=== PATIENT | male | born 1985 | race Caucasian/White ===

== ENCOUNTER 2023-07-16 09:01 | Emergency (ER) | payer MEDICAID ==
[~2023-07-16] VITALS: Ht 172.7 cm; Wt 90.0 kg
[2023-07-16 10:00] LABS: BASOPHILS % (AUTO) 0.4 % (0-1); EOSINOPHILS # (AUTO) 0.2 X10'3 (0-0.9); EOSINOPHILS % (AUTO) 2.8 % (0-6); HEMATOCRIT 47.4 % (42.0-52.0); LYMPHOCYTES # (AUTO) 2.3 X10'3 (1.1-4.8); LYMPHOCYTES % (AUTO) 34.9 % (21-51); MEAN CORPUSCULAR HEMOGLOBIN 31.3 PG (27.0-31.0); MEAN CORPUSCULAR HGB CONC 33.8 g/dL (33.0-36.5); MEAN CORPUSCULAR VOLUME 92.6 FL (78-98); MEAN PLATELET VOLUME 7.8 FL (7.4-10.4); MONOCYTES # (AUTO) 0.5 X10'3 (0-0.9); MONOCYTES % (AUTO) 7.9 % (2-12); NEUTROPHILS # (AUTO) 3.6 X10'3 (1.8-7.7); PLATELET COUNT 403 X10'3 (140-440); RED BLOOD COUNT 5.12 X10'6 (4.70-6.10); RED CELL DISTRIBUTION WIDTH 13.5 % (11.5-14.5); WHITE BLOOD COUNT 6.6 X10'3 (4.5-11.0)
[2023-07-16 10:23] LABS: ALANINE AMINOTRANSFERASE 37 U/L (12-78); ALBUMIN 4.1 G/DL (3.4-5.0); ALBUMIN/GLOBULIN RATIO 1.3 (1.1-1.5); ALKALINE PHOSPHATASE 112 IU/L (46-116); ANION GAP 7 (8-16); ASPARTATE AMINO TRANSFERASE 21 U/L (10-37); BILIRUBIN,TOTAL 0.2 MG/DL (0.1-1.0); BLOOD UREA NITROGEN 11 MG/DL (7-18); BUN/CREATININE RATIO 14.9 (10.0-20.0); CALCIUM 9.4 MG/DL (8.5-10.1); CHLORIDE 103 MMOL/L (99-107); CREATININE 0.74 MG/DL (0.60-1.10); GLUCOSE 104 MG/DL (70-104); SODIUM 140 MMOL/L (135-145); TOTAL CARBON DIOXIDE 29.8 MMOL/L (24-32); TOTAL PROTEIN 7.2 G/DL (6.4-8.2); eCRCL 134 ML/MIN; eGFR > 90 ML/MIN
[2023-07-16 10:26] LABS: POTASSIUM 3.9 MMOL/L (3.5-5.1)
--- NOTE | 2023-07-16 10:30 | NUR ---
patients belongings were removed and put into room 27.
--- NOTE | 2023-07-16 10:40 | NUR ---
patient changed intro green scrubs and is laying bed resting quietly.
[2023-07-16 10:41] LABS: ETHANOL < 10 MG/DL (<10)
[2023-07-16 11:30] LABS: THYROID STIMULATING HORMONE 1.23 ulU/ml (0.34-4.50)
--- NOTE | 2023-07-16 11:35 | NUR ---
patient was given saltine crackers and used restroom, no distress noted at this time.
[2023-07-16 11:52] LABS: URINE AMPHETAMINE SCREEN NEGATIVE (Neg); URINE BARBITUATE SCREEN NEGATIVE (Neg); URINE BENZODIAZEPINES SCREEN NEGATIVE (Neg); URINE CANNABINOID SCREEN POSITIVE (Neg); URINE COCAINE SCREEN NEGATIVE (Neg); URINE METHADONE SCREEN NEGATIVE (Neg); URINE OPIATE SCREEN POSITIVE (Neg); URINE PHENCYCLIDINE SCREEN NEGATIVE (Neg)
[2023-07-16 12:36] LABS: BILIRUBIN,URINE NEGATIVE (Neg); CLARITY,URINE CLEAR (Clear); COLOR,URINE STRAW (Yellow); GLUCOSE, URINE NEGATIVE (Neg); KETONES,URINE NEGATIVE (Neg); LEUKOCYTE ESTERASE ,URINE NEGATIVE (Neg); NITRITES, URINE NEGATIVE (Neg); OCCULT BLOOD,URINE NEGATIVE (Neg); PROTEIN,URINE NEGATIVE (Neg); UROBILINOGEN,URINE 0.2 E.U/dL (0.2-1.0)
[2023-07-16 12:40] LABS: UA COLLECTION TYPE VOIDED
--- NOTE | 2023-07-16 12:50 | NUR ---
patient laying in bed resting quietly, no distress noted.
--- NOTE | 2023-07-16 13:32 | NUR ---
mehul sent pt packet to [facility]
--- NOTE | 2023-07-16 15:47 | NUR ---
Patient sleeping in his room. Respirations equal and nonlabored. No distress observed. Continue to monitor.
--- NOTE | 2023-07-16 16:41 | NUR ---
Patient in room and appears to be responding to internal stimuli AEB having a conversation with somebody who is not there. Continue to monitor.
--- NOTE | 2023-07-16 16:50 | NUR ---
JONAS, Kirsty, evaluating patient. No distress observed.
--- NOTE | 2023-07-16 17:54 | NUR ---
tech took pt vitals, pt refused to state where their pain was.
--- NOTE | 2023-07-16 18:32 | NUR ---
Patient on a 5150 by [facility].
--- NOTE | 2023-07-16 19:36 | NUR ---
Patient is disorganized and disheveled. He was up to the bathroom once, then back to bed. He is uncooperative.
--- NOTE | 2023-07-16 20:07 | NUR ---
Patient is sleeping quietly, no distress.
--- NOTE | 2023-07-16 21:56 | NUR ---
Patient is awake and disorganized. He is brushing his teeth. A personal bath towell was removed and secured. The patient consumes snacks. He speaks about voices but denies hearing them.
--- NOTE | 2023-07-17 00:29 | NUR ---
Patient continues to sleep well. No signs of any distress.
--- NOTE | 2023-07-17 02:18 | NUR ---
Patient sleeping quietly. He ate multiple snacks earlier then returned to sleep.
--- NOTE | 2023-07-17 03:13 | NUR ---
Patient is sleeping in a prone position. No distress. He has taken off his scrub bottoms, he is covered with blankets.
--- NOTE | 2023-07-17 03:41 | NUR ---
Patient sleeping quietly. No distress.
--- NOTE | 2023-07-17 03:50 | NUR ---
Patient continues to sleep quietly, no distress.
--- NOTE | 2023-07-17 04:46 | NUR ---
Patient sleeps quietly. No distress.
--- NOTE | 2023-07-17 06:40 | NUR ---
Patient appears to be sleeping. Breathing is even and unlabored. No s/sx of distress.
--- NOTE | 2023-07-17 09:29 | NUR ---
Patient has eaten breakfast and gone back to sleep. No distress noted.
--- NOTE | 2023-07-17 10:23 | NUR ---
Patient woke up and demanded an update. Tried to speak to him, but he just keeps talking. He started demanding I get someone that can get him out of here. Then he starts threatening I get him someone to get him out of here "or I'm gonna smoke this place." Patient finally went back to bed.
--- NOTE | 2023-07-17 12:01 | NUR ---
Patient appears to be sleeping. Breathing is even and unlabored. No s/sx of distress.
--- NOTE | 2023-07-17 15:44 | NUR ---
Received call from [facility]. They are presenting to [facility], and will call if accepted
--- NOTE | 2023-07-17 16:36 | NUR ---
Patient has been accepted a [facility].
--- NOTE | 2023-07-17 16:46 | NUR ---
Rapid Covid sent to lab.
[2023-07-17 17:43] VITALS: BP 114/65; PULSE 80; O2SAT 100
--- NOTE | 2023-07-17 18:30 | NUR ---
Patient plan is to be picked up between 6:30- 7 p.m. by transport to go to [facility] this evening. Patient resting in bed with eyes closed.
--- NOTE | 2023-07-17 19:00 | NUR ---
Patient refusing to get dressed and ready for transport. Security called for assistance with good effect. Waiting on transport. Patient, paperwork and belongings ready to go.
--- NOTE | 2023-07-17 19:20 | NUR ---
Patient escorted out via ambulation by application security specialist and transport person without event. Patient was mostly cooperative with disorganized thoughts making nonsensical statements. Being transported to [facility].
[2023-07-17 19:25] VITALS: RESP 16; TEMP 97.9
== END 2023-07-17 19:20 ==
LOC: ER 09:02
DX: R45.851 Suicidal ideations (principal); Z20.822 Contact with and (suspected) exposure to COVID-19
CPT/HCPCS: 36415; 80053; 80305; 80320; 81003; 84443; 85025; 87811; 99285

== ENCOUNTER 2023-09-12 09:01 | Emergency (ER) | payer MEDICAID ==
[~2023-09-12] VITALS: Ht 172.7 cm; Wt 90.0 kg
[2023-09-12 10:52] LABS: BASOPHILS % (AUTO) 0.5 % (0-1); EOSINOPHILS # (AUTO) 0.1 X10'3 (0-0.9); EOSINOPHILS % (AUTO) 1.4 % (0-6); HEMATOCRIT 45.3 % (42.0-52.0); HEMOGLOBIN 15.5 g/dl (14.0-17.9); LYMPHOCYTES # (AUTO) 1.4 X10'3 (1.1-4.8); MEAN CORPUSCULAR HEMOGLOBIN 31.3 PG (27.0-31.0); MEAN CORPUSCULAR HGB CONC 34.2 g/dL (33.0-36.5); MEAN CORPUSCULAR VOLUME 91.5 FL (78-98); MEAN PLATELET VOLUME 7.5 FL (7.4-10.4); MONOCYTES # (AUTO) 0.4 X10'3 (0-0.9); MONOCYTES % (AUTO) 9.1 % (2-12); PLATELET COUNT 387 X10'3 (140-440); RED BLOOD COUNT 4.96 X10'6 (4.70-6.10); RED CELL DISTRIBUTION WIDTH 13.9 % (11.5-14.5); WHITE BLOOD COUNT 4.9 X10'3 (4.5-11.0)
[2023-09-12 11:10] LABS: ALANINE AMINOTRANSFERASE 44 U/L (12-78); ALBUMIN 3.9 G/DL (3.4-5.0); ALBUMIN/GLOBULIN RATIO 1.1 (1.1-1.5); ALKALINE PHOSPHATASE 112 IU/L (46-116); ANION GAP 6 (8-16); ASPARTATE AMINO TRANSFERASE 22 U/L (10-37); BILIRUBIN,TOTAL 0.5 MG/DL (0.1-1.0); BLOOD UREA NITROGEN 9 MG/DL (7-18); CALCIUM 9.3 MG/DL (8.5-10.1); CHLORIDE 101 MMOL/L (99-107); CREATININE 0.82 MG/DL (0.60-1.10); ETHANOL < 10 MG/DL (<10); GLUCOSE 89 MG/DL (70-104); POTASSIUM 3.6 MMOL/L (3.5-5.1); SODIUM 137 MMOL/L (135-145); TOTAL CARBON DIOXIDE 30.1 MMOL/L (24-32); TOTAL PROTEIN 7.4 G/DL (6.4-8.2); eCRCL 120 ML/MIN; eGFR > 90 ML/MIN
[2023-09-12 12:18] LABS: URINE AMPHETAMINE SCREEN NEGATIVE (Neg); URINE BARBITUATE SCREEN NEGATIVE (Neg); URINE BENZODIAZEPINES SCREEN NEGATIVE (Neg); URINE CANNABINOID SCREEN NEGATIVE (Neg); URINE COCAINE SCREEN NEGATIVE (Neg); URINE OPIATE SCREEN NEGATIVE (Neg); URINE PHENCYCLIDINE SCREEN NEGATIVE (Neg)
[2023-09-12 12:53] LABS: BILIRUBIN,URINE NEGATIVE (Neg); CLARITY,URINE CLEAR (Clear); COLOR,URINE YELLOW (Yellow); GLUCOSE, URINE NEGATIVE (Neg); KETONES,URINE NEGATIVE (Neg); LEUKOCYTE ESTERASE ,URINE NEGATIVE (Neg); NITRITES, URINE NEGATIVE (Neg); OCCULT BLOOD,URINE NEGATIVE (Neg); PROTEIN,URINE NEGATIVE (Neg); UROBILINOGEN,URINE 0.2 E.U/dL (0.2-1.0)
[2023-09-12 12:56] LABS: UA COLLECTION TYPE URINAL
--- NOTE | 2023-09-12 13:03 | NUR ---
Patient ambulated from main ER to overflow bed 26. He was accompanied by ER staff. "I don't want to get into the reason I'm here, but I came to get placed on a 5150."
--- NOTE | 2023-09-12 13:15 | NUR ---
[facility] packet faxed.
[2023-09-12] MEDS ORDERED: NO HOME MEDS (13:55)
--- NOTE | 2023-09-12 13:59 | NUR ---
Pt is hyperverbal with racing thoughts. Pt denies AH/VH/HI. Pt reports that he has "internal dialogue." Pt is endorsing SI, pt states that the idea appeals to him. When asked if he had a plan he replied, "jump off a building, cut my wrist, if I had a gun I would shoot myself." Pt reports that he cut his wrist in 2019 but it wasn't deep enough. Pt reported being afraid of the pain. Pt reports he has depression, anxiety, OCD,ADHD. Pt is wearing a towel on his head. Pt reports that he was discharged from [facility] at the beginning of August to a custodial in [place]. Pt is chronically homeless. Pt indicates that he is incapable of holding a job for mental and physical reasons, that he could not perform well and would be fired. Pt reports that the custodial here is a nondenominational custodial and he doesn't like nondenominational shelters. Pt travels around, pt has been homeless in [place], [place], [place], [place] to name a few [facility]. Pt reports that he prefers to treat himself with marijuana or CBD but will take "tranquilizers" if they are prescribed to him. Pt reports he went a week after being discharged from [facility] without medication or smoking marijuana.
--- NOTE | 2023-09-12 15:21 | NUR ---
Pt up to the bathroom.
--- NOTE | 2023-09-12 16:00 | NUR ---
[facility] at bedside evaluating the patient.
--- NOTE | 2023-09-12 16:14 | NUR ---
Pt appears to be responding to internal stimuli in his room, constantly talking to himself/unseen others.
--- NOTE | 2023-09-12 16:45 | NUR ---
Pt was placed on a 5150 for [facility].
[2023-09-12] MEDS ORDERED: olanzapine 10mg tablet PO ONE (19:15)
[2023-09-12] MEDS ORDERED: diphenhydrAMINE 25mg capsule PO ONE (19:15)
--- NOTE | 2023-09-12 19:39 | NUR ---
One to one with the patient who is laying on his bed with a towel on his head. He has been talking to himself about his penis. He was asked if he was hearing voices and he stated that he was not. When asked who he was talking to he stated "I'm a genius. I was doing improv" When asked about SI he stated, "more than ever. No just the same" He was agreeable to take medications and his presentation was discussed with Dr. Ash and medications were ordered.
--- NOTE | 2023-09-12 20:41 | NUR ---
The patient is laying on his bed and is quietly laughing and talking to himself.
--- NOTE | 2023-09-12 22:45 | NUR ---
The patient appears to be sleeping
--- NOTE | 2023-09-13 00:49 | NUR ---
The patient appears to be sleeping
--- NOTE | 2023-09-13 02:47 | NUR ---
The patient is resting on his bed but awake.
--- NOTE | 2023-09-13 05:23 | NUR ---
The patient appears to be sleeping at this time.
--- NOTE | 2023-09-13 06:27 | NUR ---
Patient sleeping at shift change, but awoke and requested orange juice, now back in bed.
--- NOTE | 2023-09-13 08:30 | NUR ---
Patient eating breakfast. No distress noted. Patient is quiet at this time.
--- NOTE | 2023-09-13 09:48 | NUR ---
Patient lying in bed sleeping. [facility] here to re-evaluate patient.
--- NOTE | 2023-09-13 10:08 | NUR ---
Patient has asked this science writer multiple times for orange juice starting at shift change this AM. I gave pt 1 orange juice cup and he asked for 2 more as soon as he got the first one. I advised pt that we cannot keep giving him juice and if he was thirsty I could get him water. Pt refused water and states, "I am thirsty and I can have the extra calories so I want more orange juice." I replied with another option of water and told pt he does not need extra calories, he is healthy and no one has advised me he needed extra calories throughout his day. Pt then responds back with "Well everyone else has been giving me as many jucies as I want!" I state I am not "everyone else" and I will not be giving him unlimited amounts of juice and to please stop asking. I took pt a fresh pitcher of water so he had an option to drink something if he really was that thirsty....
--- NOTE | 2023-09-13 10:24 | NUR ---
Patient sleeping in bed. No distress noted. Respirations are even and nonlabored.
--- NOTE | 2023-09-13 12:01 | NUR ---
Patient laying prone in bed sleeping.
--- NOTE | 2023-09-13 12:37 | NUR ---
Pt's med clearance paperwork was re-faxed to [facility]. [facility] office called requesting it, stating they did not recieve it yesterday.
--- NOTE | 2023-09-13 14:48 | NUR ---
Patient has been accepted at [facility] by Dr. Garsia. Patient will be picked up at 16:15.
[2023-09-13 16:43] VITALS: BP 113/64; PULSE 82; RESP 16; TEMP 98.8; O2SAT 98
== END 2023-09-13 16:47 ==
LOC: ER 09:02
DX: R45.851 Suicidal ideations (principal); Z20.822 Contact with and (suspected) exposure to COVID-19; F12.90 Cannabis use, unspecified, uncomplicated; Z79.899 Other long term (current) drug therapy; Z88.6 Allergy status to analgesic agent; Z88.1 Allergy status to other antibiotic agents; Z88.5 Allergy status to narcotic agent
CPT/HCPCS: 36415; 80053; 80305; 80320; 81003; 85025; 87811; 99285; Q0163; A6449

== ENCOUNTER 2023-12-13 17:29 | Emergency (ER) | payer MEDICAID ==
[~2023-12-13] VITALS: Ht 172.7 cm; Wt 94.1 kg
[~2023-12-13 17:29] MED LIST: NO HOME MEDS
[2023-12-13 18:52] LABS: BASOPHILS # (AUTO) 0.1 X10'3 (0-0.2); BASOPHILS % (AUTO) 0.6 % (0-1); EOSINOPHILS # (AUTO) 0.2 X10'3 (0-0.9); EOSINOPHILS % (AUTO) 1.6 % (0-6); HEMATOCRIT 45.6 % (42.0-52.0); HEMOGLOBIN 15.8 g/dl (14.0-17.9); LYMPHOCYTES # (AUTO) 3.2 X10'3 (1.1-4.8); LYMPHOCYTES % (AUTO) 28.8 % (21-51); MEAN CORPUSCULAR HEMOGLOBIN 31.4 PG (27.0-31.0); MEAN CORPUSCULAR HGB CONC 34.7 g/dL (33.0-36.5); MEAN CORPUSCULAR VOLUME 90.6 FL (78-98); MEAN PLATELET VOLUME 7.2 FL (7.4-10.4); MONOCYTES # (AUTO) 0.7 X10'3 (0-0.9); MONOCYTES % (AUTO) 6.3 % (2-12); NEUTROPHILS # (AUTO) 6.9 X10'3 (1.8-7.7); NEUTROPHILS % (AUTO) 62.7 % (42-75); PLATELET COUNT 436 X10'3 (140-440); RED BLOOD COUNT 5.03 X10'6 (4.70-6.10); RED CELL DISTRIBUTION WIDTH 13.5 % (11.5-14.5); WHITE BLOOD COUNT 10.9 X10'3 (4.5-11.0)
[2023-12-13 19:02] LABS: ALANINE AMINOTRANSFERASE 37 U/L (12-78); ALBUMIN/GLOBULIN RATIO 1.2 (1.1-1.5); ALKALINE PHOSPHATASE 104 IU/L (46-116); ANION GAP 8 (8-16); ASPARTATE AMINO TRANSFERASE 21 U/L (10-37); BILIRUBIN,TOTAL 0.3 MG/DL (0.1-1.0); BLOOD UREA NITROGEN 15 MG/DL (7-18); BUN/CREATININE RATIO 21.1 (10.0-20.0); CHLORIDE 101 MMOL/L (99-107); CREATININE 0.71 MG/DL (0.60-1.10); GLUCOSE 95 MG/DL (70-104); POTASSIUM 3.5 MMOL/L (3.5-5.1); SODIUM 137 MMOL/L (135-145); TOTAL PROTEIN 7.4 G/DL (6.4-8.2); eCRCL 139 ML/MIN; eGFR > 90 ML/MIN
[2023-12-13 19:12] LABS: THYROID STIMULATING HORMONE 1.99 ulU/ml (0.34-4.50)
[2023-12-13 19:44] LABS: BILIRUBIN,URINE NEGATIVE (Neg); CLARITY,URINE CLEAR (Clear); COLOR,URINE YELLOW (Yellow); GLUCOSE, URINE NEGATIVE (Neg); KETONES,URINE NEGATIVE (Neg); LEUKOCYTE ESTERASE ,URINE NEGATIVE (Neg); NITRITES, URINE NEGATIVE (Neg); OCCULT BLOOD,URINE NEGATIVE (Neg); PROTEIN,URINE NEGATIVE (Neg)
[2023-12-13 19:50] LABS: UA COLLECTION TYPE CLN CATCH MIDSTREAM
[2023-12-13 20:23] LABS: URINE AMPHETAMINE SCREEN NEGATIVE (Neg); URINE BARBITUATE SCREEN NEGATIVE (Neg); URINE BENZODIAZEPINES SCREEN NEGATIVE (Neg); URINE CANNABINOID SCREEN POSITIVE (Neg); URINE COCAINE SCREEN NEGATIVE (Neg); URINE METHADONE SCREEN NEGATIVE (Neg); URINE OPIATE SCREEN NEGATIVE (Neg); URINE PHENCYCLIDINE SCREEN NEGATIVE (Neg)
[2023-12-13 22:34] LABS: SALICYLATE 0.9 MG/DL (4.0-20.0)
[2023-12-13 22:36] LABS: ACETAMINOPHEN < 2.0 UG/ML (10-30)
[2023-12-13 22:37] LABS: ETHANOL < 10 MG/DL (<10)
[2023-12-14 17:12] VITALS: PULSE 67
[2023-12-14 20:46] VITALS: BP 116/65; RESP 18; TEMP 98.9; O2SAT 99
== END 2023-12-14 20:49 ==
LOC: ER 17:30
DX: R45.851 Suicidal ideations (principal); Z20.822 Contact with and (suspected) exposure to COVID-19; F12.90 Cannabis use, unspecified, uncomplicated; Z88.6 Allergy status to analgesic agent; Z88.1 Allergy status to other antibiotic agents; Z88.5 Allergy status to narcotic agent
CPT/HCPCS: 36415; 80053; 80305; 80320; 80329; 81003; 84443; 85025; 87811; 99285

== ENCOUNTER 2024-01-02 00:22 | Emergency (ER) | payer MEDICAID ==
[~2024-01-02] VITALS: Ht 172.7 cm; Wt 95.0 kg
[2024-01-02 00:27] VITALS: BP 191/83; PULSE 110; RESP 16; TEMP 98; O2SAT 96
== END 2024-01-02 06:09 | disposition left against medical advice (07) ==
LOC: ER 00:23
DX: G58.8 Other specified mononeuropathies (principal); Z53.21 Procedure and treatment not carried out due to patient leaving prior to being seen by health care provider
CPT/HCPCS: 99281

== ENCOUNTER 2025-04-19 08:11 | Inpatient (IN) | payer MEDICAID ==
[~2025-04-19] VITALS: Ht 172.7 cm; Wt 103.3 kg
[~2025-04-19 08:11] MED LIST changes: +CALC300T4 PO; +ESCI-8 PO; +HYDR-3686 PO; -NO HOME MEDS; +OLAN5TAB75 PO; +PANT40TA54 PO; +QUET100T34 PO
--- NOTE | 2025-04-19 10:34 | Physician Documentation ---
History of Present Illness ~ Chief Complaint: Suicidal Ideation Stated Complaint: Time Seen by MD: 10:18 Primary Medical Doctor: N/A HPI 40-year-old male presenting for suicidal thoughts. He has been thinking about cutting his wrist. He denies taking any medications and denies a specific plan but would like help. Medication Reconciliation Allergies: Coded Allergies: acetaminophen (Verified Allergy, Unknown, 09/20/24) amoxicillin (Verified Allergy, Unknown, 09/20/24) hydrocodone (Verified Allergy, Unknown, 09/20/24) Scheduled Calcium Carbonate* (Tums*), 500 MG PO TID@0830,1230,1730 Escitalopram Oxalate (Escitalopram Oxalate), 15 MG PO DAILY Olanzapine (Olanzapine), 5 MG PO DAILY Pantoprazole Sodium (Pantoprazole Sodium), 40 MG PO DAILY Quetiapine Fumarate (Quetiapine Fumarate), 100 MG PO HS Scheduled PRN Hydroxyzine Hcl* (Atarax*), 50 MG PO BID PRN for itching Past Medical History Past Medical History: Anxiety, Depression Past Surgical History: no surgical history Patient History: FH: cancer FH: hypertension Alcohol Use: None Drug Use: marijuana Lives with: Other Lives In: Homeless Occupation: unemployed Review of Systems All Other Systems at this time: Reviewed and Negative Physical Exam Vital Signs: RN Vital Signs have been reviewed: Yes, Temperature: 97.9, Heart Rate: 103, Respiratory Rate: 15, BP: 137/79, Pulse Oximetry: 98, Weight: 113.640 Oxygen Flow Rate: 0 Physical Exam Well-appearing no distress HEENT atraumatic Neuro awake alert oriented Psych good judgment good insight normal speech Progress Progress Note Independent interpretation of labs by myself shows no acute abnormality Results/Orders Reviewed/noted all lab results: Yes Results/Orders Orders - ARTEMIO WHITLOCK MD Drug Screen, Urine (04/19/25 10:37) Ethanol (04/19/25 10:37) TSH (04/19/25 10:37) Med Rec (04/19/25 10:37) 1799.11 (04/19/25 10:37) BMP (04/19/25 10:37) Close Observation Level (04/19/25 10:37) Covid19 Binax Poc Result Entry (04/19/25 10:37) Regular Diet (5/28/25 Dinner) Acetaminophen (04/19/25 10:45) Salicylate (04/19/25 10:45) Completed Orders - ARTEMIO WHITLOCK MD Cbc/Diff (04/19/25 10:37) Vital Signs 04/19/25 04/19/25 08:19 08:42 Temp 97.9 Pulse 103 Resp 18 15 B/P (MAP) 137/79 Pulse Ox 98 O2 Flow Rate 0 Laboratory Tests Test 04/19/25 10:45 04/19/25 11:17 White Blood Count 7.4 Red Blood Count 5.18 Hemoglobin 15.8 Hematocrit 46.2 Mean Corpuscular Volume 89.2 Mean Corpuscular Hemoglobin 30.4 Mean Corpuscular Hemoglobin Concent 34.1 Red Cell Distribution Width 13.8 Platelet Count 458 H Mean Platelet Volume 7.6 Neutrophils (%) (Auto) 58.0 Lymphocytes (%) (Auto) 31.2 Monocytes (%) (Auto) 8.0 Eosinophils (%) (Auto) 2.3 Basophils (%) (Auto) 0.5 Neutrophils # (Auto) 4.3 Lymphocytes # (Auto) 2.3 Monocytes # (Auto) 0.6 Eosinophils # (Auto) 0.2 Basophils # (Auto) 0.0 CBC Comment Sodium Level 141 Potassium Level 4.1 Chloride Level 106 Carbon Dioxide Level 28.3 Anion Gap 7 L Blood Urea Nitrogen 10 Creatinine 0.94 Estimated GFR/1.73 m2 90 BUN/Creatinine Ratio 10.6 Glucose Level 97 Calcium Level 9.0 Albumin 3.7 Thyroid Stimulating Hormone (TSH) 1.91 Chemistry Comments Medical Decision Making Additional info obtained from: old records Findings Reviewed discharge summary 10/03/2024 Differential Dx:Considerations: Include: Bipolar disorder, Conversion disorder, Depression Departure Disposition: 30 STILL A PATIENT Impression: Primary Impression: Suicidal ideation Additional Instructions: Transfer orders for [facility]: At this time there is no evidence of an emergent medical condition that would preclude (admission/transfer) to a psychiatric unit via [facility] protocol for further psychiatric, as well as medical evaluation and treatment. At this time I have no reason to believe that transfer via [facility] protocol would have serious medical compromise in the patient's health. Referrals: NO PRIMARY CARE PROVIDER (PCP) Signature Scribe Signature: na Attestation: ARTEMIO Hutchins MD April 19, 2025 10:34
[2025-04-19 11:00] LABS: BASOPHILS % (AUTO) 0.5 % (0-1); EOSINOPHILS # (AUTO) 0.2 X10'3 (0-0.9); EOSINOPHILS % (AUTO) 2.3 % (0-6); HEMATOCRIT 46.2 % (42.0-52.0); HEMOGLOBIN 15.8 g/dl (14.0-17.9); LYMPHOCYTES # (AUTO) 2.3 X10'3 (1.1-4.8); LYMPHOCYTES % (AUTO) 31.2 % (21-51); MEAN CORPUSCULAR HEMOGLOBIN 30.4 PG (27.0-31.0); MEAN CORPUSCULAR HGB CONC 34.1 g/dL (33.0-36.5); MEAN CORPUSCULAR VOLUME 89.2 FL (78-98); MEAN PLATELET VOLUME 7.6 FL (7.4-10.4); MONOCYTES # (AUTO) 0.6 X10'3 (0-0.9); NEUTROPHILS # (AUTO) 4.3 X10'3 (1.8-7.7); PLATELET COUNT 458 X10'3 (140-440); RED BLOOD COUNT 5.18 X10'6 (4.70-6.10); RED CELL DISTRIBUTION WIDTH 13.8 % (11.5-14.5); WHITE BLOOD COUNT 7.4 X10'3 (4.5-11.0)
[2025-04-19 11:24] LABS: ALBUMIN 3.7 G/DL (3.4-5.0); ANION GAP 7 (8-16); BLOOD UREA NITROGEN 10 MG/DL (7-18); BUN/CREATININE RATIO 10.6 (10.0-20.0); CHLORIDE 106 MMOL/L (99-107); CREATININE 0.94 MG/DL (0.60-1.10); GLUCOSE 97 MG/DL (70-104); POTASSIUM 4.1 MMOL/L (3.5-5.1); SODIUM 141 MMOL/L (135-145); THYROID STIMULATING HORMONE 1.91 ulU/ml (0.34-4.50); TOTAL CARBON DIOXIDE 28.3 MMOL/L (24-32); eCRCL 103 ML/MIN; eGFR 90 ML/MIN
[2025-04-19 12:42] LABS: URINE AMPHETAMINE SCREEN NEGATIVE (Neg); URINE BARBITUATE SCREEN NEGATIVE (Neg); URINE BENZODIAZEPINES SCREEN NEGATIVE (Neg); URINE CANNABINOID SCREEN POSITIVE (Neg); URINE COCAINE SCREEN NEGATIVE (Neg); URINE METHADONE SCREEN NEGATIVE (Neg); URINE OPIATE SCREEN NEGATIVE (Neg); URINE PHENCYCLIDINE SCREEN NEGATIVE (Neg)
[2025-04-19 13:04] LABS: SALICYLATE 1.2 MG/DL (4.0-20.0)
[2025-04-19 13:15] LABS: ACETAMINOPHEN < 2.0 UG/ML (10-30); ETHANOL < 10 MG/DL (<10)
[2025-04-19] MEDS ORDERED: NO HOME MEDS (18:18)
[2025-04-19 22:45] VITALS: RESP 18; O2SAT 99
[2025-04-19] MEDS ORDERED: chlorproMAZINE 25mg tablet PO PRN (23:35)
[2025-04-19] MEDS ORDERED: diphenhydrAMINE 25mg capsule PO PRN (23:35)
[2025-04-19] MEDS ORDERED: hydrOXYzine 25 MG tablet PO PRN (23:35)
[2025-04-19] MEDS ORDERED: magnesium hydroxide 30ml (MOM) UD suspension PO PRN (23:35)
[2025-04-19] MEDS ORDERED: loperamide 2mg capsule PO PRN (23:35)
[2025-04-20 07:30] VITALS: RESP 12
[2025-04-20 09:47] LABS: CHOL/HDL RATIO 3.9 (0.00-4.99); CHOLESTEROL 174 MG/DL (0-200); HDL CHOLESTEROL 45 MG/DL (35-60); LDL CHOLESTEROL 112 MG/DL (50-100); TRIGLYCERIDES 101 MG/DL (20-135)
[2025-04-20 10:05] LABS: HEMOGLOBIN A1C 5.3 % (4.5-6.2)
--- NOTE | 2025-04-20 14:51 | HISTORY AND PHYSICAL ---
History & Physical - Blank History and Physical CHIEF COMPLIANT SUICIDAL IDEATION HISTORY OF PRESENT ILLNESS 40-year-old male presenting for suicidal thoughts. He has been thinking about cutting his wrists. He denies taking any medications and denies a specific plan but would like help. CHART REVIEW Got is a 40-year-old male on a 1799 hold for danger to self at [facility], referral for a mental health evaluation. Was awake and alert, visibly responding to internal stimuli. He is somewhat orientated unknown date and time. He described his mood as suicidal with a beautiful plan to kill himself. Client was tangential and resistant to questions regarding follow-up, reporting various contingencies. He does report has treatment in [place] and [facility], but does not appear to have not current provider. Vance attest to plan to slit his wrists should he leave the hospital, noting his plan for suicidal is vivid in beautiful. Records indicate that client has most been in [facility] since July 16, 2023 when he 1st evaluated at a local ER which resulted in PHF placement. Client has been evaluated for crisis on three separate occasions since then 09/12/2023, 12/14/2023, and 09/20/2024 resulting in PHF placements. Client reports each time that he plans to cut or shoot himself and/or jump from a bridge or a abil ity. It appears that this is likely a fixed delusion. He reports presently that he plans to cut slit his wrists. Client does have significant stars on his wrists from what appears to has been deep vertical cuts. Client is not a good historian due to disorganized and delusional thought. ASSESSMENT The patient was actively walking in the hallway appears to be responding to internal stimuli. The patient refused his assessment. The patient endorses "This is suspicious; have to speak to my superior about it." The patient is stable no acute distress noted. The patietn presents as paranoid, psychotic, responding to internal stimuli, and distracted. Will continue daily assessment and adjusting treatment as needed. Closely monitor behavior and response to medication during hospitalization. Discussed treatment plan with patient. ASE/risks and benefits of chosen treatment. He verbalized understanding and consented to treatment. REVIEW OF LABS TOX SCREEN POSITIVE CANNABIS URINALYSIS NEGATIVE WBC 7.4 RBC 5.18 HEMOGLOBIN 15.8 HEMATOCRIT 46.2 PLATELET COUNT 458 SODIUM 141 POTASSIUM 4.1 CHLORIDE 106 ANION GAP 7 BUN 10 CREATININE 0.94 GLUCOSE 97 CALCIUM 9.0 TSH 1.91 MENTAL STATUS EXAM APPEARANCE: OVERWEIGHT MALE. SHORT LIKE COLOR HAIR SCRUFFY FACIAL HAIR. WEARING GREEN SCRUBS. SPEECH: TANGENTIAL, RAPID EYE CONTACT: AVOIDANT ATTENTION: DISTRACTED AFFECT: CONGRUENT WITH MOOD MOOD: IRRITABLE ORIENTATION IMPAIRMENT: NONE MEMORY IMPAIRMENT: NONE HALLUCINATIONS: NONE SUICIDALITY: IDEATION,PLAN DELUSIONS: NONE BEHAVIOR: NOT COOPERATIVE, AGITATED, ELEVATING, GUARDED JUDGMENT: POOR INSIGHT: POOR Total Time Spent 50 minutes TREATMENT Restart OLANZAPINE 10 MG P.O. Q.H.S. Restart DEPAKOTE ER 500 MG P.O. Q.H.S. Restart SEROQUEL 200 MG P.O. Q.A.M. Restart SEROQUEL 400 MG P.O. Q.H.S. Restart LEXAPRO 20 MG P.O. DAILY Monitoring by Staff, Milieu, Group, and Individual counseling as needed -- According to the [place] Suicide Assessment the above named patient is on Q15 MINUTE CHECKS. [id number]- The patient does not have a good safety plan for discharge at this time. We are still titrating medications to an effective dose while maintaining a therapeutic environment to prevent decompensation and readmission. REVIEW OF Clinical notes [X ] RN notes [X] PCT documentation [X] SW notes Labs [ X] Medications [X] Care trends/care activity [X] Vitals [X] DISCUSSION WITH pediatric care coordinator [X] Staff SW [X] Treatment Team [X] DISCHARGE UNSURE AT THIS TIME. DISCHARGE HOMELESS ONCE STABLE. Past Psychiatric History Past Psychiatric History MULTIPLE PSYCHIATRIC MENTAL HEALTH HOSPITALIZATION DIAGNOSIS DEPRESSION ANXIETY Past Medical History Past Medical History SEE MEDICAL H AND P Past Surgical History Past Surgical History DENIES ANY SURGICAL HISTORY Past Family History Patient History: FH: cancer FH: hypertension Substance Abuse History Substance Abuse History TOBACCO-DAILY MARIJUANA-DAILY ALCOHOL-DENIES ILLICIT DRUGS-DENIES (COCAINE AND ECSTASY SEE DURING COLLEGE YEARS) Personal History Current Living Situation HOMELESS Marital & Relationship History NEVER . NO CHILDREN. SINGLE. 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
[2025-04-20] MEDS: OLANZapine 5mg rapidly disint. tablet PO ONE (15:40)
[2025-04-20] MEDS: NICOTINE POLACRILEX 2 MG LOZENGE BC PRN (15:52)
--- NOTE | 2025-04-20 18:16 | HISTORY AND PHYSICAL ---
History & Physical Providers to CC ~ History of Present Illness Allergies: Coded Allergies: acetaminophen (Verified Allergy, Unknown, 09/20/24) amoxicillin (Verified Allergy, Unknown, 09/20/24) hydrocodone (Verified Allergy, Unknown, 09/20/24) Home Medications Home Medications Active Reported No Home Medications (Home Med List) Each Family History Family History: FH: cancer FH: hypertension Exam Vitals: Vital Signs Date Time Temp Pulse Resp B/P (MAP) Pulse Ox O2 Delivery O2 Flow Rate FiO2 04/20/25 07:30 12 Room Air 0.0 04/19/25 22:45 99 04/19/25 22:04 97.6 68 120/67 Diagnostic Data Last Recorded Lab Results: 04/19/25 1045 04/19/25 1045 YESSI GILMORE MD April 20, 2025 18:15
[2025-04-20 19:00] VITALS: RESP 16
--- NOTE | 2025-04-20 19:27 | HISTORY AND PHYSICAL ---
History & Physical Providers to CC ~ History of Present Illness Reason for Admit\Complaint: Suicidal idea History of Present Illness Mr. Mckeon is 39 years old male with previous medical history of testicle cancer post surgical treatment treatment in 2013. Patient is admitted for suicide due addition and seen by psychiatric team. Patient off and on it has been over left jaw and in his teeth. He mentioned he has history of TMJ joint problems in past.He is also admitting that he has a both shoulder pain and elbow pain arthritis which he gets off and on. Wanted to get some pain medication for pain control. 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 Osteoarthritis both shoulders and both elbows knees TMG join pain with bruxism Teeth decay Frequent headache with vertigo Trigeminal neuralgia Temporal neuralgia Homelessness social determinants of health Depression with suicidal thoughts and attempt Past Surgical History Surgical History Comment Cholecystectomy Status post testicular cancer in March 2014 post orchiectomy left side Family History Family History: FH: cancer FH: hypertension Past Social History Social History Comment Smoking: Cigarettes, Less than 1 pack/day Alcohol Use: None Drug Use: Marijuana Lives with: Other ([facility]) Lives In: Homeless Occupation: unemployed Exam Vitals: Vital Signs Date Time Temp Pulse Resp B/P (MAP) Pulse Ox O2 Delivery O2 Flow Rate FiO2 04/20/25 07:30 12 Room Air 0.0 04/19/25 22:45 99 04/19/25 22:04 97.6 68 120/67 General: General-patient not in any acute distress, alert awake , chronically ill- appearing HEENT-atraumatic normocephalic, neck supple without elevated JVD, no thyromegaly or carotid bruit. No lymphadenopathy bilaterally. Eyes-no icterus or pallor seen in eyes Chest-clear to auscultation bilaterally, breathing nonlabored no tachypnea, no wheezing, no crepitation, no crackles. Heart-S1-S2 normal, regular heart rate no murmur Abdomen bowel sounds positive on auscultation, soft nondistended nontender no guarding, no rigidity Skin no active skin rash Neurology-grossly intact, nonfocal alert awake cooperated during physical examination Extremity- no pedal edema able to move all 4 extremities, ambulates Psychiatry - patient is not confused or agitated Diagnostic Data Last Recorded Lab Results: 04/19/25 1045 04/19/25 1045 Additional Plan Assessment: 39-year-old male with PMH of testicular cancer status post surgery, chemotherapy. Patient has TMJ pain. Patient was admitted for schizophrenia, generalized anxiety disorder, suicidal ideation. Plan: Schizophrenia/GERD/suicidal ideation: Manage as per psych recommendations Testicular cancer: Status post surgery in 2013, chemotherapy Osteoarthritis: Complaining of left shoulder pain TMJ joint pain: The patient showing pain medication seeking behavior h/o Frequent headache with vertigo Trigeminal neuralgia Temporal neuralgia Further management of patient's psychiatric condition as per psychiatric team will continue to follow up patient from hospitalist team as needed or as per protocol . Date of Service: April 20, 2025 Billing Provider: YESSI GILMORE MD Common Visit Codes: [id number] INP/OBS CARE (MOD) YESSI GILMORE MD April 20, 2025 19:27
[2025-04-20 20:45] VITALS: BP 94/35; PULSE 69; RESP 18; TEMP 98.6; O2SAT 96
[2025-04-20 21:05] VITALS: BP 100/75; PULSE 78
[2025-04-20 21:50] VITALS: BP 92/56; PULSE 60
[2025-04-20] MEDS: divalproex sod 250mg ER (24-hour) tablet PO SCH (21:50)
[2025-04-20] MEDS: olanzapine 10mg tablet PO SCH (21:50)
[2025-04-20] MEDS: quetiapine 100mg tablet PO SCH (21:50)
[2025-04-21 02:15] VITALS: BP 96/62; PULSE 80; RESP 16
[2025-04-21] MEDS: ESCITALOPRAM 10 mg tablet 10 MG TABLET PO SCH (07:02)
[2025-04-21] MEDS: quetiapine 100mg tablet PO SCH (07:02)
[2025-04-21 07:30] VITALS: BP 119/75; PULSE 88; RESP 16; TEMP 97.9; O2SAT 97
--- NOTE | 2025-04-21 12:46 | PROGRESS NOTE ---
Progress Note Dictate Providers to CC ~ Central Line/PICC still needed: N\\A Antibiotic Ordered?: No MRSA Education MRSA Education Provided to pt: No Objective Vitals Vital Signs Date Time Temp Pulse Resp B/P (MAP) Pulse Ox O2 Delivery O2 Flow Rate FiO2 04/21/25 02:15 80 16 96/62 (73) Room Air 04/20/25 20:45 98.6 96 04/20/25 07:30 0.0 Lab Results: 04/19/25 1045 04/19/25 1045 Counseling Services Smoking & Tobacco Cessation: > 10 Minutes Problem\\Assessment\\Plan Problems/Diagnosis: (1) Schizophrenia, acute undifferentiated (2) KEVIN (generalized anxiety disorder) (3) Suicidal ideation (4) Body dysmorphic disorder (5) Attention deficit disorder Psychiatrist's Progress Note Date of Service: April 21, 2025 Notes CHART REVIEW Samy is a 40-year-old male on a 1799 hold for danger to self at [facility] ED, referral for a mental health evaluation. Was awake and alert, visibly responding to internal stimuli. He is somewhat orientated unknown date and time. He described his mood as suicidal with a beautiful plan to kill himself. Client was tangential and resistant to questions regarding follow-up, reporting various contingencies. He does report has treatment in [place] and [facility], but does not appear to have not current provider. Vance attest to plan to slit his wrists should he leave the hospital, noting his plan for suicidal is vivid in beautiful. Records indicate that client has most been in [facility] since July 16, 2023 when he 1st evaluated at a local ER which resulted in PHF placement. Client has been evaluated for crisis on three separate occasions since then 09/12/2023, 12/14/2023, and 09/20/2024 resulting in PHF placements. Client reports each time that he plans to cut or shoot himself and/or jump from a bridge or a ability. It appears that this is likely a fixed delusion. He reports presently that he plans to cut slit his wrists. Client does have significant stars on his wrists from what appears to has been deep vertical cuts. Client is not a good historian due to disorganized and delusional thought. ASSESSMENT The patient was actively resting in bed with eyes closed with a blanket covering his face. The patient refused his assessment. The patient endorses "I am not going to answer any of your questions." The patient is stable no acute distress noted. The patient presents as paranoid, psychotic, responding to internal stimuli, and distracted. Per staff report the patient is medication compliant. Per staff report patient slept 5.75 hours. Per staff report p.m. medications was held due to low blood pressure. Will continue daily assessment and adjusting treatment as needed. Closely monitor behavior and response to medication during hospitalization. Results Of any Diagn. Testing REVIEW OF LABS TOX SCREEN POSITIVE CANNABIS URINALYSIS NEGATIVE WBC 7.4 RBC 5.18 HEMOGLOBIN 15.8 HEMATOCRIT 46.2 PLATELET COUNT 458 SODIUM 141 POTASSIUM 4.1 CHLORIDE 106 ANION GAP 7 BUN 10 CREATININE 0.94 GLUCOSE 97 CALCIUM 9.0 TSH 1.91 Appearnace: Other (OVERWEIGHT MALE. SHORT LIKE COLOR HAIR SCRUFFY FACIAL HAIR. WEARING GREEN SCRUBS. ) Behavior: Other (UNCOOPERATIVE) Insight: Poor Judgment: Poor Treatment OLANZAPINE 10 MG P.O. Q.H.S. DEPAKOTE ER 500 MG P.O. Q.H.S. SEROQUEL 200 MG P.O. Q.A.M. SEROQUEL 400 MG P.O. Q.H.S. LEXAPRO 20 MG P.O. DAILY Monitoring by Staff, Milieu, Group, and Individual counseling as needed -- According to the [place] Suicide Assessment the above named patient is on Q15 MINUTE CHECKS. [id number]- The patient does not have a good safety plan for discharge at this time. We are still titrating medications to an effective dose while maintaining a therapeutic environment to prevent decompensation and readmission. REVIEW OF Clinical notes [X ] RN notes [X] PCT documentation [X] SW notes Labs [ X] Medications [X] Care trends/care activity [X] Vitals [X] DISCUSSION WITH limited radiology technician [X] Staff SW [X] Treatment Team [X] Discharge UNSURE AT THIS TIME. DISCHARGE HOMELESS ONCE STABLE. CODING VISIT-PSYCHIATRY Date of Service: April 21, 2025 Billing Provider: HANH ANDERSEN APRN Psych Common Visit Codes: [id number] INP/OBS CARE(Mod) HANH ANDERSEN APRN April 21, 2025 12:46
[2025-04-21 19:00] VITALS: RESP 16; O2SAT 96
[2025-04-21 20:00] VITALS: BP 127/52; PULSE 75; RESP 16; TEMP 98.2; O2SAT 96
[2025-04-22 07:58] VITALS: RESP 18
[2025-04-22 08:03] VITALS: PULSE 75; RESP 16
--- NOTE | 2025-04-22 10:34 | PROGRESS NOTE ---
Progress Note Dictate Providers to CC ~ Central Line/PICC still needed: N\A Antibiotic Ordered?: No Objective Vitals Vital Signs Date Time Temp Pulse Resp B/P (MAP) Pulse Ox O2 Delivery O2 Flow Rate FiO2 04/22/25 08:03 75 16 Room Air 04/21/25 20:00 98.2 127/52 (77) 96 04/21/25 07:30 0.0 Lab Results: 04/19/25 1045 04/19/25 1045 Problem\Assessment\Plan Problems/Diagnosis: (1) Schizophrenia, acute undifferentiated (2) KEVIN (generalized anxiety disorder) (3) Attention deficit disorder (4) Suicidal ideation Psychiatrist's Progress Note Date of Service: April 22, 2025 Notes Mr Al Woodard is a 40yo male, with history anxiety, depression, and ADHD presented to [facility] ED for SI and plan to cut himself. Patient is a tall overweight male. He has short brown colored hair and scruffy facial hair. He is wearing a towel on his head. Wearing green scrubs. Woke up feeling very refreshed and no desire to kill myself. SI always exist but not as 'hard core.' Not has much detail. When they are vivid and more frequently... feels like an amazing experience. Feeling sad. Anxiety, depression. 'I feel like my life is over, no solution to my situation.' Living at the [facility]. Waiting on SSDI. Back on medications. 'smoke marijuana outside of here'. Forgot to transfer his meds and ended up off meds for a time. Not going to fill anything except Seroquel because MJ is better. He says he will just go back to smoking MJ. He says when he leaves he will not be taking Lexapro, Olanzapine and Depakote. and 'Lexapro feels fake.' No AH/VH. 'odd stuff that happens around me...' No sure of paranoid thinking. Sleep pretty good. Mental Status Eye contact: Intermittent; Behavior: Cooperative. A little Elevated. Guarded. Speech: rapid, pressured, hyperverbal and does not want to be interrupted. He takes offense to it. Mood: Depressed/anxious Affect: Constricted. Thought process: Mild disorganization, Circumstantial/Tangential at times. Likely Paranoid Delusions. Thought Content: immediate needs/medications. Cognition: A&O X3 not truly why; Insight: Very Poor insight into his mental illness and taking medications to stay out of [facility]; Judgment: Very Poor; SI Passive/HI Denies, AH Denies, but is definitely seen responding to internal stimuli/VH Denies Results Of any Diagn. Testing REVIEW OF LABS TOX SCREEN POSITIVE CANNABIS URINALYSIS NEGATIVE WBC 7.4 RBC 5.18 HEMOGLOBIN 15.8 HEMATOCRIT 46.2 PLATELET COUNT 458 SODIUM 141 POTASSIUM 4.1 CHLORIDE 106 ANION GAP 7 BUN 10 CREATININE 0.94 GLUCOSE 97 CALCIUM 9.0 TSH 1.91 Treatment Truly not sure what we will be able to do to help this patient. He seems to go to [facility] gets stable on medications, leaves said facility and stops his medications all except Seroquel because he feels the THC works better. He lacks significant insight into his mental illness and judgment to understand he needs to take the medications to stay stable once he is stable. OLANZAPINE 10 MG P.O. Q.H.S. DEPAKOTE ER 500 MG P.O. Q.H.S. SEROQUEL 200 MG P.O. Q.A.M. SEROQUEL 400 MG P.O. Q.H.S. LEXAPRO 20 MG P.O. DAILY Nicotine Dependence-- replace nicotine products. MEDICAL: GERD- Protonix Monitoring by Staff, Milieu, Group, and Individual counseling as needed -- According to the [place] Suicide Assessment the above named patient is on Q15 min checks [id number] Patient does not have a good safety plan for discharge at this time. We are still titrating medications to an effective dose while maintaining a therapeutic environment to prevent decompensation and readmission. Discharge Unsure at this time. REVIEW OF Clinical notes [X ] RN notes [X] PCT documentation [X] SW notes [ X] Labs [ X] Medications [X] Care trends/care activity [X] Vitals [X] DISCUSSION WITH photo offset printer [X] Staff SW Treatment Team Provider Sign Out CODING VISIT-PSYCHIATRY Date of Service: April 22, 2025 Billing Provider: SHELBY VASQUEZ Psych Common Visit Codes: [id number] INP/OBS CARE(High) Problem Qualifiers (1) Attention deficit disorder: Qualified Codes: F98.8 - Other specified behavioral and emotional disorders with onset usually occurring in childhood and adolescence SHELBY VASQUEZ April 22, 2025 10:34
--- NOTE | 2025-04-22 11:20 | PROGRESS NOTE ---
Daily Progress Note Providers to CC ~ Antibiotic Timeout Antibiotic Ordered?: No Subjective Chronic pain due to rotator cuff injury Objective Vital Signs Date Time Temp Pulse Resp B/P (MAP) Pulse Ox O2 Delivery O2 Flow Rate FiO2 04/22/25 08:03 75 16 Room Air 04/21/25 20:00 98.2 127/52 (77) 96 04/21/25 07:30 0.0 Result Diagram: 04/19/25 1045 04/19/25 1045 HEENT normal oral mucosa no JVD Lungs with normal bilateral entry Heart normal rate and rhythm Abdomen is soft obese nontender Extremities no edema Alert and awake Problem\Assessment\Plan Patient admitted to Mental Health for management of schizophrenia and generalized anxiety disorder; management per Psychiatry Chronic pain due to rotator cuff injury; patient states that at home he takes ibuprofen 800 mg p.o. t.i.d. which was reordered Date of Service: April 22, 2025 Billing Provider: ILDA LEE MD Common Visit Codes: [id number] INP/OBS CARE(MOD) ILDA LEE MD April 22, 2025 11:20
[2025-04-22] MEDS: ibuprofen tablet 400 MG TABLET PO PRN (11:36)
[2025-04-22 19:00] VITALS: RESP 18
[2025-04-22 20:00] VITALS: RESP 18
[2025-04-22] MEDS: traZODone 50mg tablet PO PRN (20:35)
[2025-04-23 07:00] VITALS: RESP 18
[2025-04-23 08:00] VITALS: RESP 18
--- NOTE | 2025-04-23 18:02 | PROGRESS NOTE ---
Progress Note Dictate Providers to CC ~ Central Line/PICC still needed: N\A Antibiotic Ordered?: No Objective Vitals Vital Signs Date Time Temp Pulse Resp B/P (MAP) Pulse Ox O2 Delivery O2 Flow Rate FiO2 04/23/25 08:00 18 04/23/25 07:00 Room Air 04/22/25 08:03 75 04/21/25 20:00 98.2 127/52 (77) 96 04/21/25 07:30 0.0 Lab Results: 04/19/25 1045 04/19/25 1045 Problem\Assessment\Plan Problems/Diagnosis: (1) Schizophrenia, acute undifferentiated (2) KEVIN (generalized anxiety disorder) (3) Attention deficit disorder (4) Suicidal ideation Psychiatrist's Progress Note Date of Service: Apr 23, 2025 Notes Mr Al Woodard is a 40yo male, with history anxiety, depression, and ADHD presented to [facility] ED for SI and plan to cut himself. Patient is a tall overweight male. He has short brown colored hair and scruffy facial hair. He is wearing a towel on his head. Wearing green scrubs. Not as hard core. Still there. 'a certain appeal with permanent condition with no solution.' No adverse reason. 'seems like a positive experience.' 'mental programming and reading. Watching TV.' 'If I had a gun right now, I wouldn't do it right now.' Still depression. 'life is over, nothing to live for, and don't think it's ever going to do anything... maybe try to have a better quality of life before I kill myself.... and would like to have less pain when I kill myself.' Next time will drink more wine so he doesn't have as much pain when he cuts his wrists. Still has a real plan. He has complete thought out plans. He thinks the gun would be way better. Wants to appeal the gun document. He says he could get himself drunk and then jump from a high building. ADHD and OCD 'I have to be less specific etc.' Sleep has been good. Woke only a couple times last night. Eating good. Had a normal BM yesterday. Mental Status Eye contact: Intermittent; Behavior: Cooperative. A little Elevated. Guarded. Speech: rapid, pressured, hyperverbal and does not like to be interrupted. He takes offense to it. Mood: Depressed/anxious Affect: Constricted. Thought process: Racing, Circumstantial/Tangential at times. Likely Paranoid Delusions. Thought Content: immediate needs/medications. Cognition: A&O X3 not truly why; Insight: Very Poor insight into his mental illness and taking medications to stay out of [facility]; Judgment: Very Poor; SI He has significant suicidal ideations and many different plans. He states that currently he is not actively suicidal/HI Denies, AH Denies, but is definitely seen responding to internal stimuli/ Denies Results Of any Diagn. Testing REVIEW OF LABS TOX SCREEN POSITIVE CANNABIS URINALYSIS NEGATIVE WBC 7.4 RBC 5.18 HEMOGLOBIN 15.8 HEMATOCRIT 46.2 PLATELET COUNT 458 SODIUM 141 POTASSIUM 4.1 CHLORIDE 106 ANION GAP 7 BUN 10 CREATININE 0.94 GLUCOSE 97 CALCIUM 9.0 TSH 1.91 Treatment Truly not sure what we will be able to do to help this patient. He seems to go to [facility] gets stable on medications, leaves said facility and stops his medications all except Seroquel because he feels the THC works better. He lacks significant insight into his mental illness and judgment to understand he needs to take the medications to stay stable once he is stable. I see this patient as definitely gravely disabled. OLANZAPINE 10 MG P.O. Q.H.S. DEPAKOTE ER 500 MG P.O. Q.H.S. SEROQUEL 200 MG P.O. Q.A.M. SEROQUEL 400 MG P.O. Q.H.S. LEXAPRO 20 MG P.O. DAILY Nicotine Dependence-- replace nicotine products. MEDICAL: GERD- Protonix Monitoring by Staff, Milieu, Group, and Individual counseling as needed -- According to the [place] Suicide Assessment the above named patient is on Q15 min checks 5250DTS Patient does not have a good safety plan for discharge at this time. We are still titrating medications to an effective dose while maintaining a therapeutic environment to prevent decompensation and readmission. Discharge Unsure at this time. REVIEW OF Clinical notes [X ] RN notes [X] PCT documentation [X] SW notes [ X] Labs [ X] Medications [X] Care trends/care activity [X] Vitals [X] DISCUSSION WITH organizational research consultant [X] CODING VISIT-PSYCHIATRY Date of Service: Apr 23, 2025 Billing Provider: SHELBY VASQUEZ Psych Common Visit Codes: [id number] INP/OBS CARE(Mod) Problem Qualifiers (1) Attention deficit disorder: Qualified Codes: F98.8 - Other specified behavioral and emotional disorders with onset usually occurring in childhood and adolescence SHELBY VASQUEZ Apr 23, 2025 18:02
[2025-04-23 20:00] VITALS: BP 134/86; PULSE 100; RESP 16; TEMP 98.6; O2SAT 96
[2025-04-23 21:47] VITALS: RESP 16; O2SAT 96
[2025-04-24 07:00] VITALS: RESP 18
[2025-04-24 08:00] VITALS: RESP 16
--- NOTE | 2025-04-24 11:40 | PROGRESS NOTE ---
Daily Progress Note Providers to CC ~ Antibiotic Timeout Antibiotic Ordered?: No Subjective None new. Patient refused exam stating he has been examined several times. Objective Vital Signs Date Time Temp Pulse Resp B/P (MAP) Pulse Ox O2 Delivery O2 Flow Rate FiO2 04/24/25 08:00 16 Room Air 04/23/25 21:47 96 04/23/25 20:00 98.6 100 134/86 (102) 04/21/25 07:30 0.0 Refused exam Problem\Assessment\Plan Patient admitted to Mental Health for management of schizophrenia and generalized anxiety disorder. Continue treat per psych. Chronic pain due to rotator cuff injury: Continue ibuprofen I will sign off. Please contact the hospitalist team for any change in patient's medical condition. Hospitalist team will continue to follow the patient as per policy/protocol. Date of Service: Apr 24, 2025 Billing Provider: KACEY MOORE MD Common Visit Codes: [id number] INP/OBS CARE(LOW) KACEY MOORE MD Apr 24, 2025 11:40
--- NOTE | 2025-04-24 12:18 | PROGRESS NOTE ---
Progress Note Dictate Providers to CC ~ Central Line/PICC still needed: N\\A Antibiotic Ordered?: No MRSA Education MRSA Education Provided to pt: No Objective Vitals Vital Signs Date Time Temp Pulse Resp B/P (MAP) Pulse Ox O2 Delivery O2 Flow Rate FiO2 04/24/25 08:00 16 Room Air 04/23/25 21:47 96 04/23/25 20:00 98.6 100 134/86 (102) 04/21/25 07:30 0.0 Problem\\Assessment\\Plan Problems/Diagnosis: (1) Schizophrenia, acute undifferentiated (2) KEVIN (generalized anxiety disorder) (3) Suicidal ideation (4) Body dysmorphic disorder (5) Attention deficit disorder Psychiatrist's Progress Note Date of Service: Apr 24, 2025 Notes CHART REVIEW Samy is a 40-year-old male on a 1799 hold for danger to self at [facility] ED, referral for a mental health evaluation. Was awake and alert, visibly responding to internal stimuli. He is somewhat orientated unknown date and time. He described his mood as suicidal with a beautiful plan to kill himself. Client was tangential and resistant to questions regarding follow-up, reporting various contingencies. He does report has treatment in [place] and [facility], but does not appear to have not current provider. Vance attest to plan to slit his wrists should he leave the hospital, noting his plan for suicidal is vivid in beautiful. Records indicate that client has most been in [facility] since July 16, 2023 when he 1st evaluated at a local ER which resulted in PHF placement. Client has been evaluated for crisis on three separate occasions since then 09/12/2023, 12/14/2023, and 09/20/2024 resulting in PHF placements. Client reports each time that he plans to cut or shoot himself and/or jump from a bridge or a ability. It appears that this is likely a fixed delusion. He reports presently that he plans to cut slit his wrists. Client does have significant stars on his wrists from what appears to has been deep vertical cuts. Client is not a good historian due to disorganized and delusional thought. ASSESSMENT The patient was interviewed in observation room. The patient was actively resting in bed with eyes open. The patient endorses "I have nothing to live for." "I have no life I have no plans." "I know multi[lr ways to kill myself." Denies HI. Denies AVH. Patient endorses adequate sleep and food intake. The patient is stable no acute distress noted. The patient presents as a bit irritable, anxious, disengaged in session. Per staff report the patient is medication compliant. Per staff report patient noted responding to internal stimuli. Will continue daily assessment and adjusting treatment as needed. Closely monitor behavior and response to medication during hospitalization. Results Of any Diagn. Testing REVIEW OF LABS TOX SCREEN POSITIVE CANNABIS URINALYSIS NEGATIVE WBC 7.4 RBC 5.18 HEMOGLOBIN 15.8 HEMATOCRIT 46.2 PLATELET COUNT 458 SODIUM 141 POTASSIUM 4.1 CHLORIDE 106 ANION GAP 7 BUN 10 CREATININE 0.94 GLUCOSE 97 CALCIUM 9.0 TSH 1.91 Appearnace: Other (OVERWEIGHT MALE. SHORT LIKE COLOR HAIR SCRUFFY FACIAL HAIR. WEARING GREEN SCRUBS) Speech: Pressured, Impoverished, Other (CIRCUMSTANTIAL, HYPERVERBAL) Eye Contact: Other (INTERMITTENT) Motor Activity: Normal Affect: Flat Mood: Depressed Orientation Impairment: None Memory Impairment: None Attention: Normal Hallucinations: None Other: None Suicidality: Ideation, Plan Homicidality: None Delusions: None Behavior: Guarded Insight: Poor Judgment: Poor Treatment Increase OLANZAPINE 15 MG P.O. Q.H.S. DEPAKOTE ER 500 MG P.O. Q.H.S. SEROQUEL 200 MG P.O. Q.A.M. SEROQUEL 400 MG P.O. Q.H.S. LEXAPRO 20 MG P.O. DAILY Monitoring by Staff, Milieu, Group, and Individual counseling as needed -- According to the [place] Suicide Assessment the above named patient is on Q15 MINUTE CHECKS. VOLUNTARY REVIEW OF Clinical notes [X ] RN notes [X] PCT documentation [X] SW notes Labs [ X] Medications [X] Care trends/care activity [X] Vitals [X] DISCUSSION WITH keypunch operator [X] Staff SW [X] Treatment Team [X] Discharge UNSURE AT THIS TIME. DISCHARGE HOMELESS ONCE STABLE. CODING VISIT-PSYCHIATRY Date of Service: Apr 24, 2025 Billing Provider: HANH ANDERSEN APRN Psych Common Visit Codes: [id number] INP/OBS CARE(Mod) Problem Qualifiers (1) Attention deficit disorder: Qualified Codes: F98.8 - Other specified behavioral and emotional disorders with onset usually occurring in childhood and adolescence HANH ANDERSEN APRN Apr 24, 2025 12:18
[2025-04-24 18:35] VITALS: RESP 18
[2025-04-24 19:35] VITALS: RESP 18
[2025-04-25 07:00] VITALS: RESP 17; O2SAT 97
[2025-04-25 08:00] VITALS: BP 111/56; PULSE 111; RESP 17; TEMP 97.7; O2SAT 97
--- NOTE | 2025-04-25 15:44 | PROGRESS NOTE ---
Progress Note Dictate Providers to CC ~ Central Line/PICC still needed: N\\A Antibiotic Ordered?: No MRSA Education MRSA Education Provided to pt: No Objective Vitals Vital Signs Date Time Temp Pulse Resp B/P (MAP) Pulse Ox O2 Delivery O2 Flow Rate FiO2 04/25/25 08:00 97.7 111 17 111/56 (74) 97 Room Air 04/21/25 07:30 0.0 Problem\\Assessment\\Plan Problems/Diagnosis: (1) Schizophrenia, acute undifferentiated (2) KEVIN (generalized anxiety disorder) (3) Suicidal ideation (4) Body dysmorphic disorder (5) Attention deficit disorder Psychiatrist's Progress Note Date of Service: Apr 25, 2025 Notes CHART REVIEW Samy is a 40-year-old male on a 1799 hold for danger to self at [facility] ED, referral for a mental health evaluation. Was awake and alert, visibly responding to internal stimuli. He is somewhat orientated unknown date and time. He described his mood as suicidal with a beautiful plan to kill himself. Client was tangential and resistant to questions regarding follow-up, reporting various contingencies. He does report has treatment in [place] and [facility], but does not appear to have not current provider. Vance attest to plan to slit his wrists should he leave the hospital, noting his plan for suicidal is vivid in beautiful. Records indicate that client has most been in [facility] since July 16, 2023 when he 1st evaluated at a local ER which resulted in PHF placement. Client has been evaluated for crisis on three separate occasions since then 09/12/2023, 12/14/2023, and 09/20/2024 resulting in PHF placements. Client reports each time that he plans to cut or shoot himself and/or jump from a bridge or a ability. It appears that this is likely a fixed delusion. He reports presently that he plans to cut slit his wrists. Client does have significant stars on his wrists from what appears to has been deep vertical cuts. Client is not a good historian due to disorganized and delusional thought. ASSESSMENT The patient was interviewed in observation room. The patient was actively r esting in bed with a towel covering his face . The patient endorses "better theen when I got here." "I am not suicidal but still have ideation.' goes back to my mental health symptoms and my rototar cuff surgery." "I need surgery but I am paranoid I will on the table." I been walking and journalizing. "The medication is working but I prefer marijuana." I want to drop the Lexapro to 15mg I am not suicidal and I don't want the chemicals to mess up my brain." "I have ADHD and OCD since the 7th grade." When asked why he cover up with a towl the patient endorse "I have body dysmorphina and facial scarring." "I don't want to scar anyone." "Seeing myself in the mirror can be a trigger." Denies SI. Denies HI. Denies AVH. Patient endorses adequate sleep and food intake. The patient is stable no acute distress noted. The patient presents as cooperative, a bit anxious, hyperverbal, and engaged in session. Per staff report the patient is medication compliant. Per staff report patient noted responding to internal stimuli. Will continue daily assessment and adjusting treatment as needed. Closely monitor behavior and response to medication during hospitalization. Results Of any Diagn. Testing REVIEW OF LABS TOX SCREEN POSITIVE CANNABIS URINALYSIS NEGATIVE WBC 7.4 RBC 5.18 HEMOGLOBIN 15.8 HEMATOCRIT 46.2 PLATELET COUNT 458 SODIUM 141 POTASSIUM 4.1 CHLORIDE 106 ANION GAP 7 BUN 10 CREATININE 0.94 GLUCOSE 97 CALCIUM 9.0 TSH 1.91 Appearnace: Other (OVERWEIGHT MALE. SHORT LIKE COLOR HAIR SCRUFFY FACIAL HAIR. WEARING GREEN SCRUBS) Speech: Tangential, Other (CIRCUMSTANTIAL, HYPERVEBAL ) Eye Contact: Other (INTERMITTENT) Motor Activity: Normal Affect: Full Mood: Anxious Orientation Impairment: None Memory Impairment: None Attention: Normal Hallucinations: None Other: None Suicidality: Ideation Homicidality: None Delusions: None Behavior: Cooperative Insight: Poor Judgment: Poor Treatment OLANZAPINE 15 MG P.O. Q.H.S. DEPAKOTE ER 500 MG P.O. Q.H.S. SEROQUEL 200 MG P.O. Q.A.M. SEROQUEL 400 MG P.O. Q.H.S. Decrease LEXAPRO 20 MG P.O. DAILY Monitoring by Staff, Milieu, Group, and Individual counseling as needed -- According to the [place] Suicide Assessment the above named patient is on Q15 MINUTE CHECKS. VOLUNTARY REVIEW OF Clinical notes [X ] RN notes [X] PCT documentation [X] SW notes Labs [ X] Medications [X] Care trends/care activity [X] Vitals [X] DISCUSSION WITH rehab therapist [X] Staff SW [X] Treatment Team [X] Discharge UNSURE AT THIS TIME. DISCHARGE HOMELESS ONCE STABLE. CODING VISIT-PSYCHIATRY Date of Service: Apr 25, 2025 Billing Provider: HANH ANDERSEN APRN Psych Common Visit Codes: [id number] INP/OBS CARE(Mod) Problem Qualifiers (1) Attention deficit disorder: Qualified Codes: F98.8 - Other specified behavioral and emotional disorders with onset usually occurring in childhood and adolescence HANH ANDERSEN APRN Apr 25, 2025 15:43
[2025-04-25 19:00] VITALS: RESP 16; O2SAT 96
[2025-04-25 20:00] VITALS: BP 131/86; PULSE 100; RESP 16; TEMP 98.4; O2SAT 96
[2025-04-25] MEDS: OLANZAPINE 5 MG TABLET PO SCH (20:29)
[2025-04-26 07:37] VITALS: RESP 16
[2025-04-26] MEDS: ESCITALOPRAM 10 mg tablet 10 MG TABLET PO SCH (07:58)
--- NOTE | 2025-04-26 14:22 | PROGRESS NOTE ---
Progress Note Dictate Providers to CC ~ Central Line/PICC still needed: N\\A Antibiotic Ordered?: No MRSA Education MRSA Education Provided to pt: No Objective Vitals Vital Signs Date Time Temp Pulse Resp B/P (MAP) Pulse Ox O2 Delivery O2 Flow Rate FiO2 04/26/25 08:00 Room Air 04/26/25 07:37 16 04/25/25 20:00 98.4 100 131/86 (101) 96 Counseling Services Smoking & Tobacco Cessation: > 10 Minutes Problem\\Assessment\\Plan Problems/Diagnosis: (1) Schizophrenia, acute undifferentiated (2) KEVIN (generalized anxiety disorder) (3) Suicidal ideation (4) Body dysmorphic disorder (5) Attention deficit disorder Psychiatrist's Progress Note Date of Service: Apr 26, 2025 Notes CHART REVIEW Samy is a 40-year-old male on a 1799 hold for danger to self at [facility] ED, referral for a mental health evaluation. Was awake and alert, visibly responding to internal stimuli. He is somewhat orientated unknown date and time. He described his mood as suicidal with a beautiful plan to kill himself. Client was tangential and resistant to questions regarding follow-up, reporting various contingencies. He does report has treatment in [place] and [facility], but does not appear to have not current provider. Vance attest to plan to slit his wrists should he leave the hospital, noting his plan for suicidal is vivid in beautiful. Records indicate that client has most been in [facility] since July 16, 2023 when he 1st evaluated at a local ER which resulted in PHF placement. Client has been evaluated for crisis on three separate occasions since then 09/12/2023, 12/14/2023, and 09/20/2024 resulting in PHF placements. Client reports each time that he plans to cut or shoot himself and/or jump from a bridge or a ability. It appears that this is likely a fixed delusion. He reports presently that he plans to cut slit his wrists. Client does have significant stars on his wrists from what appears to has been deep vertical cuts. Client is not a good historian due to disorganized and delusional thought. ASSESSMENT The patient was interviewed in observation room. The patient was actively walking in the hallway towel covering his face . The patient endorses "negative." The ideation are still the same but better they are still a ppealing." "one is to cut my wrist with a box car washer, off a parking garage which is better than jumping off a hotel or an abandoned building, and/or shoot myself in the head by far my favored but I can not do anything why I am in here." "I want to feel positive before I so I would need to be high or drunk before I do any of those things." "I was doing some art stuff going through different seems in my head for a screen play." "Denies SI. Denies HI. Denies AVH. Patient endorses adequate sleep and food intake. The patient is stable no acute distress noted. The patient presents as cooperative, Passive suicidal with a multiple plan, less hyperverbal, and engaged in session. Per staff report the patient is medication compliant. Per staff report patient noted responding to internal stimuli. Will continue daily assessment and adjusting treatment as needed. Closely monitor behavior and response to medication during hospitalization. Results Of any Diagn. Testing REVIEW OF LABS TOX SCREEN POSITIVE CANNABIS URINALYSIS NEGATIVE WBC 7.4 RBC 5.18 HEMOGLOBIN 15.8 HEMATOCRIT 46.2 PLATELET COUNT 458 SODIUM 141 POTASSIUM 4.1 CHLORIDE 106 ANION GAP 7 BUN 10 CREATININE 0.94 GLUCOSE 97 CALCIUM 9.0 TSH 1.91 Appearnace: Other (OVERWEIGHT MALE. SHORT LIKE COLOR HAIR SCRUFFY FACIAL HAIR. WEARING GREEN SCRUBS) Speech: Other (CIRCUMSTANTIAL) Eye Contact: Avoidant Motor Activity: Normal Affect: Flat Orientation Impairment: None Memory Impairment: None Attention: Normal Hallucinations: None Other: None Suicidality: Ideation (PASSIVE), Plan Homicidality: None Delusions: None Behavior: Cooperative Insight: Fair, Poor Judgment: Poor Treatment OLANZAPINE 15 MG P.O. Q.H.S. DEPAKOTE ER 500 MG P.O. Q.H.S. SEROQUEL 200 MG P.O. Q.A.M. SEROQUEL 400 MG P.O. Q.H.S. Decrease LEXAPRO 15 MG P.O. DAILY Monitoring by Staff, Milieu, Group, and Individual counseling as needed -- According to the [place] Suicide Assessment the above named patient is on Q15 MINUTE CHECKS. VOLUNTARY Toatal time spent 50 minutes REVIEW OF Clinical notes [X ] RN notes [X] PCT documentation [X] SW notes Labs [ X] Medications [X] Care trends/care activity [X] Vitals [X] DISCUSSION WITH rush seater [X] Staff SW [X] Treatment Team [X] Discharge UNSURE AT THIS TIME. DISCHARGE HOMELESS ONCE STABLE. CODING VISIT-PSYCHIATRY Date of Service: Apr 26, 2025 Billing Provider: HANH ANDERSEN APRN Psych Common Visit Codes: [id number] INP/OBS CARE(Mod) Problem Qualifiers (1) Attention deficit disorder: Qualified Codes: F98.8 - Other specified behavioral and emotional disorders with onset usually occurring in childhood and adolescence HANH ANDERSEN APRN Apr 26, 2025 14:22
[2025-04-26] MEDS: HALLS - SOOTHE MENTHOL 1.8 MG cough drop LOZENGE MM PRN (16:31)
[2025-04-26 19:00] VITALS: RESP 18; O2SAT 96
--- NOTE | 2025-04-26 19:51 | PROGRESS NOTE- Residence ---
Progress Note - Resident Providers to CC Resident Creating Document: OPAL WHITE RES ~ Antibiotic Timeout Antibiotic Ordered?: No Subjective Patient seen and examined. He is in the TV room waiting to watch but shotgun [place]. States suicidal ideations have gotten better, complaints of jaw pain as he has TMJ and history of bruxism. Objective Vital Signs Date Time Temp Pulse Resp B/P (MAP) Pulse Ox O2 Delivery O2 Flow Rate FiO2 04/26/25 08:00 Room Air 04/26/25 07:37 16 04/25/25 20:00 98.4 100 131/86 (101) 96 General: Awake and Alert, no acute distress. HEENT: Conjunctiva pink, Sclera clear, Mucus Membranes moist. Neck: Supple without masses and tenderness. Resp: Unlabored. Equal breath sounds bilaterally. Heart: Regular rhythm, normal S1 and S2, no rub, murmur or gallop. Abdomen: Soft and non tender no organomegaly. Normal bowel sounds x4 quadrant normoactive. No guarding or rigidity. Extremities: Normal ROM, no swelling, nontender. No cyanosis,clubbing or edema. SLUNK SKIN CURER: No gross motor or sensory abnormalities. Skin: Warm and Dry. Assessment Assessment Rotator cuff injury on ibuprofen Schizophrenia Generalized anxiety Suicide ideations Management per psychiatrist, hospitalist team will continue to follow. Date of Service: Apr 26, 2025 Billing Provider: ILDA LEE MD Common Visit Codes: [id number] INP/OBS CARE(MOD) OPAL WHITE RES Apr 26, 2025 19:51 ILDA LEE MD Apr 26, 2025 22:17
[2025-04-26 20:00] VITALS: BP 138/89; PULSE 114; RESP 18; TEMP 98.2; O2SAT 96
[2025-04-27 07:30] VITALS: BP 116/68; PULSE 85; RESP 14; TEMP 97.2; O2SAT 97
--- NOTE | 2025-04-27 12:29 | PROGRESS NOTE ---
Progress Note Dictate Providers to CC ~ Central Line/PICC still needed: N\\A Antibiotic Ordered?: No MRSA Education MRSA Education Provided to pt: No Objective Vitals Vital Signs Date Time Temp Pulse Resp B/P (MAP) Pulse Ox O2 Delivery O2 Flow Rate FiO2 04/27/25 07:30 97.2 85 14 116/68 (84) 97 Room Air 0.0 Counseling Services Smoking & Tobacco Cessation: > 10 Minutes Problem\\Assessment\\Plan Problems/Diagnosis: (1) Schizophrenia, acute undifferentiated (2) KEVIN (generalized anxiety disorder) (3) Suicidal ideation (4) Body dysmorphic disorder (5) Attention deficit disorder Psychiatrist's Progress Note Date of Service: Apr 27, 2025 Notes CHART REVIEW Samy is a 40-year-old male on a 1799 hold for danger to self at [facility] ED, referral for a mental health evaluation. Was awake and alert, visibly responding to internal stimuli. He is somewhat orientated unknown date and time. He described his mood as suicidal with a beautiful plan to kill himself. Client was tangential and resistant to questions regarding follow-up, reporting various contingencies. He does report has treatment in [place] and [facility], but does not appear to have not current provider. Vance attest to plan to slit his wrists should he leave the hospital, noting his plan for suicidal is vivid in beautiful. Records indicate that client has most been in [facility] since July 16, 2023 when he 1st evaluated at a local ER which resulted in PHF placement. Client has been evaluated for crisis on three separate occasions since then 09/12/2023, 12/14/2023, and 09/20/2024 resulting in PHF placements. Client reports each ti me that he plans to cut or shoot himself and/or jump from a bridge or a ability. It appears that this is likely a fixed delusion. He reports presently that he plans to cut slit his wrists. Client does have significant stars on his wrists from what appears to has been deep vertical cuts. Client is not a good historian due to disorganized and delusional thought. ASSESSMENT The patient was interviewed in observation room. The patient was actively walking in room with towel covering his face . The patient endorses "it is pretty much the same." "I can not really avoided because if I see myself in the mirror then I see the scars I see my hair is highlighted." "Just things I can not fix." "I do not think if I am out there I would try to kill myself." "Ideation is still positive but not anywhere near where it was before." Denies SI. Denies HI. Denies AVH. Patient endorses adequate sleep and food intake. The patient is stable no acute distress noted. The patient presents as cooperative, less depressed, and engaged in session. Per staff report the patient is medication compliant. Per staff report patient noted responding to internal stimuli. Will continue daily assessment and adjusting treatment as needed. Closely monitor behavior and response to medication during hospitalization. Results Of any Diagn. Testing REVIEW OF LABS TOX SCREEN POSITIVE CANNABIS URINALYSIS NEGATIVE WBC 7.4 RBC 5.18 HEMOGLOBIN 15.8 HEMATOCRIT 46.2 PLATELET COUNT 458 SODIUM 141 POTASSIUM 4.1 CHLORIDE 106 ANION GAP 7 BUN 10 CREATININE 0.94 GLUCOSE 97 CALCIUM 9.0 TSH 1.91 Appearnace: Other (OVERWEIGHT MALE. SHORT LIKE COLOR HAIR SCRUFFY FACIAL HAIR. WEARING GREEN SCRUBS) Speech: Other (CIRCUMSTANTIAL) Eye Contact: Other (INTERMITTENT) Motor Activity: Normal Affect: Full Orientation Impairment: None Memory Impairment: None Attention: Normal Hallucinations: None Other: None Suicidality: Ideation Homicidality: None Delusions: None Behavior: Cooperative Insight: Fair, Poor Judgment: Poor Treatment OLANZAPINE 15 MG P.O. Q.H.S. DEPAKOTE ER 500 MG P.O. Q.H.S. SEROQUEL 200 MG P.O. Q.A.M. SEROQUEL 400 MG P.O. Q.H.S. Decrease LEXAPRO 15 MG P.O. DAILY Monitoring by Staff, Milieu, Group, and Individual counseling as needed -- According to the [place] Suicide Assessment the above named patient is on Q15 MINUTE CHECKS. VOLUNTARY Toatal time spent 40 minutes REVIEW OF Clinical notes [X ] RN notes [X] PCT documentation [X] SW notes Labs [ X] Medications [X] Care trends/care activity [X] Vitals [X] DISCUSSION WITH industrial roofer [X] Staff SW [X] Treatment Team [X] Discharge UNSURE AT THIS TIME. DISCHARGE HOMELESS ONCE STABLE. CODING VISIT-PSYCHIATRY Date of Service: Apr 27, 2025 Billing Provider: NATHALY,HANH CLINICAL LABORATORY MEDICAL DIRECTOR Psych Common Visit Codes: [id number] INP/OBS CARE(Mod) Problem Qualifiers (1) Attention deficit disorder: Qualified Codes: F98.8 - Other specified behavioral and emotional disorders with onset usually occurring in childhood and adolescence HANH ANDERSEN APRN Apr 27, 2025 12:29
[2025-04-27 20:00] VITALS: BP 111/82; PULSE 110; RESP 20; TEMP 97.6; O2SAT 95
[2025-04-28 07:46] VITALS: RESP 14
--- NOTE | 2025-04-28 12:25 | PROGRESS NOTE ---
Progress Note Dictate Providers to CC ~ Central Line/PICC still needed: N\\A Antibiotic Ordered?: No MRSA Education MRSA Education Provided to pt: No Objective Vitals Vital Signs Date Time Temp Pulse Resp B/P (MAP) Pulse Ox O2 Delivery O2 Flow Rate FiO2 04/28/25 07:46 14 04/28/25 07:30 Room Air 0.0 04/27/25 20:00 97.6 110 111/82 (92) 95 Problem\\Assessment\\Plan Problems/Diagnosis: (1) Schizophrenia, acute undifferentiated (2) KEVIN (generalized anxiety disorder) (3) Suicidal ideation (4) Body dysmorphic disorder (5) Attention deficit disorder Psychiatrist's Progress Note Date of Service: Apr 28, 2025 Notes CHART REVIEW Samy is a 40-year-old male on a 1799 hold for danger to self at [facility] ED, referral for a mental health evaluation. Was awake and alert, visibly responding to internal stimuli. He is somewhat orientated unknown date and time. He described his mood as suicidal with a beautiful plan to kill himself. Client was tangential and resistant to questions regarding follow-up, reporting various contingencies. He does report has treatment in [place] and [facility], but does not appear to have not current provider. Vance attest to plan to slit his wrists should he leave the hospital, noting his plan for suicidal is vivid in beautiful. Records indicate that client has most been in [facility] since July 16, 2023 when he 1st evaluated at a local ER which resulted in PHF placement. Client has been evaluated for crisis on three separate occasions since then 09/12/2023, 12/14/2023, and 09/20/2024 resulting in PHF placements. Client reports each time that he plans to cut or shoot himself and/or jump from a bridge or a ability. It appears that this is likely a fixed delusion. He reports presently that he plans to cut slit his wrists. Client does have significant stars on his wrists from what appears to has been deep vertical cuts. Client is not a good historian due to disorganized and delusional thought. ASSESSMENT The patient was interviewed in observation room. The patient was actively walking in room with towel covering his face . The patient endorses "I still have ideation but it is improving." "Nothing I would do here but all sort of options like purchase a gun or walk into traffic but I wouldn't act on them right now." Passive SI. Denies HI. Denies AVH. Patient endorses adequate sleep and food intake. The patient is stable no acute distress noted. The patient presents as cooperative, a bit depressed, and engaged in session. Per staff report the patient is medication compliant. Per staff report patient noted responding to internal stimuli during walks in the hallway.. Will continue daily assessment and adjusting treatment as needed. Closely monitor behavior and response to medication during hospitalization. Results Of any Diagn. Testing REVIEW OF LABS TOX SCREEN POSITIVE CANNABIS URINALYSIS NEGATIVE WBC 7.4 RBC 5.18 HEMOGLOBIN 15.8 HEMATOCRIT 46.2 PLATELET COUNT 458 SODIUM 141 POTASSIUM 4.1 CHLORIDE 106 ANION GAP 7 BUN 10 CREATININE 0.94 GLUCOSE 97 CALCIUM 9.0 TSH 1.91 Appearnace: Other (OVERWEIGHT MALE. SHORT LIKE COLOR HAIR SCRUFFY FACIAL HAIR. WEARING GREEN SCRUBS) Speech: Other (CIRCUMSTANTIAL) Eye Contact: Other (INTERMITTENT) Motor Activity: Normal Affect: Flat Mood: Depressed Orientation Impairment: None Memory Impairment: None Attention: Normal Hallucinations: None Other: None Suicidality: Ideation, Plan Homicidality: None Delusions: None Behavior: Cooperative Insight: Poor Judgment: Poor Treatment OLANZAPINE 15 MG P.O. Q.H.S. DEPAKOTE ER 500 MG P.O. Q.H.S. SEROQUEL 200 MG P.O. Q.A.M. SEROQUEL 400 MG P.O. Q.H.S. Decrease LEXAPRO 15 MG P.O. DAILY Monitoring by Staff, Milieu, Group, and Individual counseling as needed -- According to the [place] Suicide Assessment the above named patient is on Q15 MINUTE CHECKS. VOLUNTARY Toatal time spent 45 minutes REVIEW OF Clinical notes [X ] RN notes [X] PCT documentation [X] SW notes Labs [ X] Medications [X] Care trends/care activity [X] Vitals [X] DISCUSSION WITH backpackers manager [X] Staff SW [X] Treatment Team [X] Discharge UNSURE AT THIS TIME. DISCHARGE HOMELESS ONCE STABLE. CODING VISIT-PSYCHIATRY Date of Service: Apr 28, 2025 Billing Provider: HANH ANDERSEN APRN Psych Common Visit Codes: [id number] INP/OBS CARE(Mod) Problem Qualifiers (1) Attention deficit disorder: Qualified Codes: F98.8 - Other specified behavioral and emotional disorders with onset usually occurring in childhood and adolescence HANH ANDERSEN BONE DRIER OPERATOR Apr 28, 2025 12:25
--- NOTE | 2025-04-28 15:37 | PROGRESS NOTE ---
Daily Progress Note Providers to CC ~ Antibiotic Timeout Antibiotic Ordered?: No Subjective No new complaints, patient refuses to get examined. Objective Vital Signs Date Time Temp Pulse Resp B/P (MAP) Pulse Ox O2 Delivery O2 Flow Rate FiO2 04/28/25 07:46 14 04/28/25 07:30 Room Air 0.0 04/27/25 20:00 97.6 110 111/82 (92) 95 Patient refused exam Other Results Medications reviewed Problem\Assessment\Plan Patient admitted to Mental Health for management of schizophrenia and generalized anxiety disorder. Patient refused exam. Continue treat per psych recommendations . Chronic pain due to rotator cuff injury: Continue ibuprofen I will sign off. Please contact the hospitalist team for any change in patient's medical condition. Hospitalist team will continue to follow the patient as per policy/protocol. Date of Service: Apr 28, 2025 Billing Provider: KACEY MOORE MD Common Visit Codes: [id number] INP/OBS CARE(LOW) KACEY MOORE MD Apr 28, 2025 15:37
[2025-04-28 20:00] VITALS: BP 128/58; PULSE 99; RESP 18; TEMP 97; O2SAT 97
[2025-04-29 07:00] VITALS: RESP 18
--- NOTE | 2025-04-29 15:42 | PROGRESS NOTE ---
Progress Note Dictate Providers to CC ~ Central Line/PICC still needed: N\\A Antibiotic Ordered?: No MRSA Education MRSA Education Provided to pt: No Objective Vitals Vital Signs Date Time Temp Pulse Resp B/P (MAP) Pulse Ox O2 Delivery O2 Flow Rate FiO2 04/29/25 07:00 18 Room Air 0.0 04/28/25 20:00 97.0 99 128/58 (81) 97 Problem\\Assessment\\Plan Problems/Diagnosis: (1) Schizophrenia, acute undifferentiated (2) KEVIN (generalized anxiety disorder) (3) Suicidal ideation (4) Body dysmorphic disorder (5) Attention deficit disorder Psychiatrist's Progress Note Date of Service: Apr 30, 2025 Notes CHART REVIEW Samy is a 40-year-old male on a 1799 hold for danger to self at [facility], referral for a mental health evaluation. Was awake and alert, visibly responding to internal stimuli. He is somewhat orientated unknown date and time. He described his mood as suicidal with a beautiful plan to kill himself. Client was tangential and resistant to questions regarding follow-up, reporting various contingencies. He does report has treatment in [place] and [facility], but does not appear to have not current provider. Vance attest to plan to slit his wrists should he leave the hospital, noting his plan for suicidal is vivid in beautiful. Records indicate that client has most been in [facility] since July 16, 2023 when he 1st evaluated at a local ER which resulted in PHF placement. Client has been evaluated for crisis on three separate occasions since then 09/12/2023, 12/14/2023, and 09/20/2024 resulting in PHF placements. Client reports each time that he plans to cut or shoot himself and/or jump from a bridge or a a bility. It appears that this is likely a fixed delusion. He reports presently that he plans to cut slit his wrists. Client does have significant stars on his wrists from what appears to has been deep vertical cuts. Client is not a good historian due to disorganized and delusional thought. ASSESSMENT The patient was interviewed in observation room. The patient was actively sit ting in rec room towel covering his face and head . The patient endorses "Okay." "I still have suicidal ideation but not as strong today." Passive SI. Denies HI. Denies AVH. Patient endorses adequate sleep and food intake. The patient is stable no acute distress noted. The patient presents as cooperative, less depressed, and engaged in session. Per staff report the patient is medication compliant. Per staff report patient refused vitals and physical assessment. Will continue daily assessment and adjusting treatment as needed. Closely monitor behavior and response to medication during hospitalization. Results Of any Diagn. Testing REVIEW OF LABS TOX SCREEN POSITIVE CANNABIS URINALYSIS NEGATIVE WBC 7.4 RBC 5.18 HEMOGLOBIN 15.8 HEMATOCRIT 46.2 PLATELET COUNT 458 SODIUM 141 POTASSIUM 4.1 CHLORIDE 106 ANION GAP 7 BUN 10 CREATININE 0.94 GLUCOSE 97 CALCIUM 9.0 TSH 1.91 Appearnace: Other (OVERWEIGHT MALE. SHORT LIKE COLOR HAIR SCRUFFY FACIAL HAIR. WEARING GREEN SCRUBS) Speech: Other (CIRCUMSTANTIAL) Eye Contact: Other (INTERMITTENT) Motor Activity: Normal Affect: Constricted Orientation Impairment: None Memory Impairment: None Attention: Normal Hallucinations: Auditory Other: None Suicidality: Ideation, Plan Homicidality: None Delusions: None Behavior: Cooperative Insight: Fair, Poor Judgment: Poor Treatment OLANZAPINE 15 MG P.O. Q.H.S. DEPAKOTE ER 500 MG P.O. Q.H.S. SEROQUEL 200 MG P.O. Q.A.M. SEROQUEL 400 MG P.O. Q.H.S. Decrease LEXAPRO 15 MG P.O. DAILY Monitoring by Staff, Milieu, Group, and Individual counseling as needed -- According to the [place] Suicide Assessment the above named patient is on Q15 MINUTE CHECKS. VOLUNTARY Toatal time spent 30 minutes REVIEW OF Clinical notes [X ] RN notes [X] PCT documentation [X] SW notes Labs [ X] Medications [X] Care trends/care activity [X] Vitals [X] DISCUSSION WITH television service engineer [X] Staff SW [X] Treatment Team [X] Discharge UNSURE AT THIS TIME. DISCHARGE HOMELESS ONCE STABLE. CODING VISIT-PSYCHIATRY Date of Service: Apr 30, 2025 Billing Provider: HANH ANDERSEN APRN Psych Common Visit Codes: [id number]-[id number] INP/OBS CARE(Mod) Problem Qualifiers (1) Attention deficit disorder: Qualified Codes: F98.8 - Other specified behavioral and emotional disorders with onset usually occurring in childhood and adolescence HANH ANDERSEN APRN Apr 29, 2025 15:42
[2025-04-29 19:39] VITALS: RESP 18
[2025-04-30 07:00] VITALS: RESP 18
[2025-04-30 08:00] VITALS: RESP 16
[2025-04-30] MEDS: mag hydrox/Alum hydrox/simeth 30ml oral suspension PO PRN (10:54)
--- NOTE | 2025-04-30 11:58 | PROGRESS NOTE ---
Progress Note Dictate Providers to CC ~ Central Line/PICC still needed: N\\A Antibiotic Ordered?: No MRSA Education MRSA Education Provided to pt: No Objective Vitals Vital Signs Date Time Temp Pulse Resp B/P (MAP) Pulse Ox O2 Delivery O2 Flow Rate FiO2 04/30/25 08:00 16 Room Air 04/30/25 07:00 0.0 04/28/25 20:00 97.0 99 128/58 (81) 97 Counseling Services Smoking & Tobacco Cessation: > 10 Minutes Advance Care Planning Advanced Care planning: Add on additional 30 min Problem\\Assessment\\Plan Problems/Diagnosis: (1) Schizophrenia, acute undifferentiated (2) KEVIN (generalized anxiety disorder) (3) Suicidal ideation (4) Body dysmorphic disorder (5) Attention deficit disorder Psychiatrist's Progress Note Date of Service: Apr 30, 2025 Notes CHART REVIEW Samy is a 40-year-old male on a 1799 hold for danger to self at [facility], referral for a mental health evaluation. Was awake and alert, visibly responding to internal stimuli. He is somewhat orientated unknown date and time. He described his mood as suicidal with a beautiful plan to kill himself. Client was tangential and resistant to questions regarding follow-up, reporting various contingencies. He does report has treatment in [place] and [facility], but does not appear to have not current provider. Vance attest to plan to slit his wrists should he leave the hospital, noting his plan for suicidal is vivid in beautiful. Records indicate that client has most been in [facility] since July 16, 2023 when he 1st evaluated at a local ER which resulted in PHF placement. Client has been evaluated for crisis on three separate occasions since then 09/12/2023, 12/14/2023, and 09/20/2024 resulting in PHF placements. Client reports each time that he plans to cut or shoot himself and/or jump from a bridge or a ability. It appears that this is likely a fixed delusion. He reports presently that he plans to cut slit his wrists. Client does have significant stars on his wrists from what appears to has been deep vertical cuts. Client is not a good historian due to disorganized and delusional thought. ASSESSMENT The patient was interviewed in observation room. The patient was actively sitting in rec room towel covering his face and head . The patient endorses "better." Patient endorses no worsening mental health symptoms. Passive SI. Denies HI. Denies AVH. Patient endorses adequate sleep and food intake. The patient is stable no acute distress noted. The patient presents as cooperative, calm, and engaged in session. Per staff report the patient is medication compliant. Per staff report patient refused vitals and physical assessment. Will continue daily assessment and adjusting treatment as needed. Closely monitor behavior and response to medication during hospitalization. Results Of any Diagn. Testing REVIEW OF LABS TOX SCREEN POSITIVE CANNABIS URINALYSIS NEGATIVE WBC 7.4 RBC 5.18 HEMOGLOBIN 15.8 HEMATOCRIT 46.2 PLATELET COUNT 458 SODIUM 141 POTASSIUM 4.1 CHLORIDE 106 ANION GAP 7 BUN 10 CREATININE 0.94 GLUCOSE 97 CALCIUM 9.0 TSH 1.91 Appearnace: Other (OVERWEIGHT MALE. SHORT LIKE COLOR HAIR SCRUFFY FACIAL HAIR. WEARING GREEN SCRUBS) Speech: Other (CIRCUMSTANTIAL) Eye Contact: Other (INTERMITTENT) Motor Activity: Normal Affect: Full Orientation Impairment: None Memory Impairment: None Attention: Normal Hallucinations: None Other: None Suicidality: Ideation Homicidality: None Delusions: None Behavior: Cooperative Insight: Fair Judgment: Fair, Poor Treatment OLANZAPINE 15 MG P.O. Q.H.S. DEPAKOTE ER 500 MG P.O. Q.H.S. SEROQUEL 200 MG P.O. Q.A.M. SEROQUEL 400 MG P.O. Q.H.S. Decrease LEXAPRO 15 MG P.O. DAILY Monitoring by Staff, Milieu, Group, and Individual counseling as needed -- According to the [place] Suicide Assessment the above named patient is on Q15 MINUTE CHECKS. VOLUNTARY Toatal time spent 25 minutes REVIEW OF Clinical notes [X ] RN notes [X] PCT documentation [X] SW notes Labs [ X] Medications [X] Care trends/care activity [X] Vitals [X] DISCUSSION WITH application analyst [X] Staff SW [X] Treatment Team [X] Discharge UNSURE AT THIS TIME. DISCHARGE HOMELESS ONCE STABLE. CODING VISIT-PSYCHIATRY Date of Service: Apr 30, 2025 Billing Provider: SHERRELL SANCHEZ MD Psych Common Visit Codes: [id number] INP/OBS CARE(Low) Problem Qualifiers (1) Attention deficit disorder: Qualified Codes: F98.8 - Other specified behavioral and emotional disorders with onset usually occurring in childhood and adolescence HANH ANDERSEN APRN Apr 30, 2025 11:58
--- NOTE | 2025-04-30 12:06 | PROGRESS NOTE ---
Daily Progress Note Providers to CC ~ Antibiotic Timeout Antibiotic Ordered?: No Subjective Patient is standing in the hallway , refused to be examined. States he has had his vitals taken today. Objective Vital Signs Date Time Temp Pulse Resp B/P (MAP) Pulse Ox O2 Delivery O2 Flow Rate FiO2 04/30/25 08:00 16 Room Air 04/30/25 07:00 0.0 04/28/25 20:00 97.0 99 128/58 (81) 97 Refused exam Problem\Assessment\Plan Patient admitted to Mental Health for management of schizophrenia and generalized anxiety disorder. Continue treat per psych. Chronic pain due to rotator cuff injury: Continue ibuprofen I will sign off. Please contact the hospitalist team for any change in patient's medical condition. Hospitalist team will continue to follow the patient as per policy/protocol. Date of Service: Apr 30, 2025 Billing Provider: KACEY MOORE MD Common Visit Codes: NOT BILLABLE KACEY MOORE MD Apr 30, 2025 12:06
[2025-04-30 19:00] VITALS: RESP 18
[2025-04-30 20:00] VITALS: RESP 16
[2025-05-01 07:00] VITALS: RESP 16
[2025-05-01 08:00] VITALS: RESP 16
[2025-05-01] MEDS ORDERED: ESCI20TA39 PO (10:41)
[2025-05-01] MEDS ORDERED: QUET100T34 PO (10:41)
[2025-05-01] MEDS ORDERED: DIVA500T9 PO (10:41)
--- NOTE | 2025-05-01 10:51 | DISCHARGE SUMMARY ---
Discharge Summary Providers to CC ~ Discharge Summary Admission Diagnosis: SCHIZOPHRENIA ACUTE UNDIFFERENTIATED.KEVIN.SUICIDAL IDEATION.ADD.BODY DYSMORP Hospital Course DATE OF ADMISSION: DATE OF DISCHARGE: Discharge Diagnosis\\Comment: SCHIZOPHRENIA ACUTE UNDIFFERENTIATED. KEVIN. SUICIDAL IDEATION. ADD. BODY DYSMORPHIC Operations\\Procedures: NONE Consultants: MEDICAL TEAM Complications: NONE Condition on DC: Stable 2 or more antipsychotic used: No 2/more antipsychotic addressed: No Does Patient smoke: Yes Smoking education given.: Yes New Medications: Divalproex Sodium (Divalproex Sodium ER) 500 Mg Tab.er.24h 1 TAB PO HS for 30 Days, #30 TAB 0 Refills Escitalopram Oxalate (Escitalopram Oxalate) 20 Mg Tablet 1 TAB PO DAILY for 30 Days, #30 TAB 0 Refills Quetiapine Fumarate (Quetiapine Fumarate) 100 Mg Tablet 200 MG PO DAILY for 30 Days, #180 TAB Discontinued Medications: Home Med List (No Home Medications) Each Discharge Summary: CHART REVIEW Vance ashby is a 40-year-old male on a 1799 hold for danger to self at [facility], referral for a mental health evaluation. Was awake and alert, visibly responding to internal stimuli. He is somewhat orientated unknown date and time. He described his mood as suicidal with a beautiful plan to kill himself. Client was tangential and resistant to questions regarding follow-up, reporting various contingencies. He does report [place] [facility] but does not appear to have not current provider. Vance attest to plan to slit his wrists should he leave the hospital, noting his plan for suicidal is vivid in beautiful. Patient actively seen and examined on day of discharge 04/2025, by myself, VANIA Payne. The patient is interviewed in observation room. The patient endorses "Good." Denies SI. Denies HI. Denies AVH. Vance was able to formulate a safety plan which includes going to the emergency room if symptoms return or worsen. Call [phone] or [phone] for immediate assistance if necessary. During his hospital stay, Vance receive multidisciplinary treatment he adhered to his medication regimen and has been pleasant and cooperative. He reports passive suicidal ideation (SI). He denies (SI), homicidal ideation (HI), auditory/visual hallucination (HI). Staff has reported no behavioral issues, and the patient has been sleeping well, adequate food intake, with no mood or behavioral changes noted. The decision to discharge Vance was made in consensus with the treatment team, including the high school social studies teacher, community assistant, and charge machine operator on duty. The patient was discharged with a 30 day supply of medications. MENTAL STATUS EXAM APPEARANCE: APPROPRIATELY. DRESSED IN STREET CLOTHING. SPEECH: CIRCUMSTANCE EYE CONTACT: NORMAL AFFECT: CONGRUENT WITH MOOD MOOD: "GOOD" ORIENTATION IMPAIRMENT: NONE MEMORY IMPAIRMENT: NONE ATTENTION: NORMAL HALLUCINATIONS: NONE SUICIDALITY: SUICIDAL IDEATION HOMICIDALITY: NONE DELUSIONS: NONE BEHAVIOR: COOPERATIVE, PLEASANT JUDGMENT: FAIR INSIGHT: FAIR Continue Current Inpatient Psychotropic Regimen @ home Follow-Up with Psychiatric Provider Safety Plan Discussed DISCHARGE CONDITION: His readiness for discharge is supported by his stable mental status, adherence to treatment, and proactive approach to managing his mental health. Passive SI. Denies HI. Denies A/V/H. The patient has been informed to continue follow-up care to ensure ongoing support and monitoring. Patient discharged to homeless. *Problems/Diagnosis: (1) Schizophrenia, acute undifferentiated (2) KEVIN (generalized anxiety disorder) (3) Suicidal ideation Status: Acute (4) Body dysmorphic disorder (5) Attention deficit disorder Total Time Spent on D/C: > 30 Minutes Counseling Services Smoking & Tobacco Cessation: > 10 Minutes CODING VISIT-PSYCHIATRY Date of Service: May 01, 2025 Billing Provider: HANH ANDERSEN APRN Psych Common Visit Codes: 03149-MSV/OBS DISCH DAY >30min Problem Qualifiers (1) Attention deficit disorder: Qualified Codes: F98.8 - Other specified behavioral and emotional disorders with onset usually occurring in childhood and adolescence HANH ANDERSEN APRN May 01, 2025 10:48
== END 2025-05-01 16:18 | disposition home or self-care (01) | DRG 751 ==
LOC: ER 08:11 → UNDOADMIN 17:27 → ADULT MH 17:27
PROVIDERS: ADMIT Psychiatry & Neurology Psychiatry; ATTEND Psychiatry & Neurology Psychiatry
PROC: GZHZZZZ Group Psychotherapy (ICD-10-PCS; principal; 2025-04-20)
PROC: GZ51ZZZ Individual Psychotherapy, Behavioral (ICD-10-PCS; 2025-04-20)
PROC: GZ56ZZZ Individual Psychotherapy, Supportive (ICD-10-PCS; 2025-04-20)
DX: F23 Brief psychotic disorder (principal); R45.851 Suicidal ideations; E66.3 Overweight; F17.210 Nicotine dependence, cigarettes, uncomplicated; F41.1 Generalized anxiety disorder; F42.9 Obsessive-compulsive disorder, unspecified; F45.22 Body dysmorphic disorder; F90.9 Attention-deficit hyperactivity disorder, unspecified type; Z20.822 Contact with and (suspected) exposure to COVID-19; F98.8 Other specified behavioral and emotional disorders with onset usually occurring in childhood and adolescence; G50.0 Trigeminal neuralgia; G89.29 Other chronic pain; I10 Essential (primary) hypertension; K21.9 Gastro-esophageal reflux disease without esophagitis; M19.011 Primary osteoarthritis, right shoulder; M19.012 Primary osteoarthritis, left shoulder; Z56.0 Unemployment, unspecified; Z59.00 Homelessness unspecified; Z76.5 Malingerer [conscious simulation]; Z79.899 Other long term (current) drug therapy; Z82.49 Family history of ischemic heart disease and other diseases of the circulatory system; Z85.47 Personal history of malignant neoplasm of testis; Z88.0 Allergy status to penicillin; Z88.5 Allergy status to narcotic agent; Z88.6 Allergy status to analgesic agent; Z68.34 Body mass index [BMI] 34.0-34.9, adult
CPT/HCPCS: 36415; 80048; 80061; 80305; 80320; 80329; 83036; 84443; 85025; 87081; 87811; 99285